=== PATIENT | female | born 1960 | race Caucasian/White ===

== ENCOUNTER 2018-07-21 20:25 | Inpatient (IN) | payer MEDICAID, OTHER ==
[~2018-07-21] VITALS: Ht 149.9 cm; Wt 50.5 kg
[2018-07-22] MEDS ORDERED: FUROSEMIDE 40 MG INJ IV ONE ×3 (00:30→09:00)
[2018-07-22] MEDS ORDERED: INSULIN REGULAR, HUMAN 100 UNIT/1 ML 3ML VIAL SC ONE (00:30)
--- NOTE | 2018-07-22 01:31 | HP ---
Date/Time of Note Date/Time of Note DATE: 07/22/18 TIME: 01:30 Assessment/Plan VTE Prophylaxis Pharmacological prophylaxis: heparin Lines/Catheters IV Catheter Type (from [facility]): Saline Lock Assessment/Plan Hospital Course This is a 57-year-old female being admitted to the telemetry floor for: #1 Volume overload: Likely mixed multifactorial secondary to underlying kidney disease, possible CHF. Her lungs appear clear on examination and chest x-ray is clear. She does have bilateral lower extremity edema. BNP is 1360. Will obtain an echocardiogram, renal ultrasound to further evaluate. She did receive 80 of Lasix in the IV however her urine output was poor. I will give her a dose of Zaroxolyn and additional dose of Lasix and will assess her urine output. Will consult cardiology as well as Dr. Arevalo of nephrology. Will hold off on initiating any SRAVNA inhibitor until were able to figure out her baseline of her kidney function. #2 hypertensive urgency: Patient did present with blood pressures in the systol ic of 180 which did subsequently rise to 200. PRN labetalol at the current time. This likely also has a component of her volume overload. We will diurese her. I will start her on Norvasc 10 mg p.o. daily. Hold off on SRAVAN inhibitor until were able to have a baseline creatinine level. #3 chest pain: Patient has been reporting on and off symptoms of chest pain over the past few weeks. Will check cardiac enzymes x3, first that was negative will check an echocardiogram. Will consult cardiology #4 elevated BNP: possibly undiagnosed CHF. Will check an echocardiogram. Consult cardiology. #5 acute versus acute on chronic kidney injury: concern for possible nephrotic syndrome, will obtain urine studies. I do not have a previous baseline creatinine. Likely multifactorial secondary to underlying poorly controlled hypertension, poorly controlled diabetes mellitus. Will obtain a renal ultrasound. Urine studies. Will consult nephrology Dr. Arevalo. Avoid NSAIDs and nephrotoxins. #6 poorly controlled diabetes mellitus: Patient present with blood sugars in the 600s. She did receive NovoLog in the ER. I will start the patient on a weight- based dose of Lantus and sliding scale. We will need to optimize patient's blood sugar regimen likely with p.o. and insulin based medications. Will obtain a hemoglobin A1c. Check urine microalbumin. #7 hyponatremia: Likely secondary to volume overload, hyperglycemia. will diurese the patient. Will monitor serum sodium levels. Treat elevated blood sugars. #8 DVT GI prophylaxis: Heparin subcu, no GI prophylaxis indicated Further treatment strategy will be implemented as per the clinical course. Result Diagram: 07/21/186 07/21/18 2306 Results 24hrs Laboratory Tests Test 07/21/18 23:06 07/22/18 00:47 White Blood Count 6.1 Red Blood Count 3.48 L Hemoglobin 10.3 L Hematocrit 30.8 L Mean Corpuscular Volume 88.5 Mean Corpuscular Hemoglobin 29.6 Mean Corpuscular Hemoglobin Concent 33.4 Red Cell Distribution Width 13.1 Platelet Count 326 Mean Platelet Volume 10.1 Immature Granulocytes % 0.800 H Neutrophils % 67.3 Lymphocytes % 23.5 Monocytes % 5.9 Eosinophils % 1.8 Basophils % 0.7 Nucleated Red Blood Cells % 0.0 Immature Granulocytes # 0.050 H Neutrophils # 4.1 Lymphocytes # 1.4 Monocytes # 0.4 Eosinophils # 0.1 Basophils # 0.0 Nucleated Red Blood Cells # 0.0 Sodium Level 127 L Potassium Level 4.3 Chloride Level 100 Carbon Dioxide Level 23 Anion Gap 4 L Blood Urea Nitrogen 26 H Creatinine 1.61 H Est Glomerular Filtrat Rate mL/min 33 L Glucose Level 649 *H Calcium Level 8.2 L Total Bilirubin 0.1 L Direct Bilirubin 0.00 Indirect Bilirubin 0.1 Aspartate Amino Transf (AST/SGOT) 19 Alanine Aminotransferase (ALT/SGPT) 14 Alkaline Phosphatase 160 H Troponin I < 0.012 B-Type Natriuretic Peptide 1360 H Total Protein 6.0 L Albumin 2.6 L Globulin 3.40 H Albumin/Globulin Ratio 0.76 Bedside Glucose > 595 *H HPI/ROS Admit Date/Time Admit Date/Time Hx of Present Illness Chief complaint: Lower extremity edema, dyspnea on exertion This is a 57-year-old female with a past medical history of diabetes mellitus hypertension hyperlipidemia who presents to the emergency department with symptoms of bilateral lower extremity edema and dyspnea on exertion. Patient reports that due to the fact that she does not have a primary care physician she has been unable to be compliant with her medications. She was previously on Lasix for lower extremity swelling. She has noticed that over the last 4 days she has noticed swelling getting worse of her lower extremities. Her legs feel heavy. She also reports that she has tightness down her bilateral legs to her toes. She states that she feels short of breath when she walks. She has been experiencing on and off chest pain as well on occasion in the past. Allergies: NKDA Medications: See DIYA DIALLO Const: As per HPI Eyes : No pain discharge or redness or change in visual acuity ENT: No pain, sore throat, congestion, congestion, dysphagia or discharge Respiratory: As per HPI Cardiovascular: As per HPI GI : no change in appetite, abdominal pain, nausea, vomiting, diarrhea, constipation, or change in the color his stool Genitourinary: No dysuria, hematuria, flank pain , discharge or CVA tenderness Musculoskeletal: No joint pain, back pain, neck pain, restricted range of motion in neck or joints Skin: No rash, bruising or hives Neuro: No headache, dizziness, syncope, seizure, focal weakness Endocrine: As per HPI Psych: No hallucination, depression, anxiety or suicidal ideation PMH/Family/Social Past Medical History Hypertension, diabetes, hyperlipidemia Medications Current Medications Insulin Glargine (Lantus) 11 units DAILY@0800 SC ; Start 07/22/18 at 08:00; Status UNV Coded Allergies: No Known Drug Allergies (Verified Allergy, Unknown, 07/22/18) Past Surgical History Bilateral cataracts Family History Significant Family History: no pertinent family hx Social History Alcohol Use: none Smoking Status: Never smoker Drug Use: none Exam/Review of Systems Vital Signs Vitals Vital Signs Date Temp Pulse Resp B/P (MAP) Pulse Ox O2 O2 Flow FiO2 Time Delivery Rate 07/21/18 87 18 203/106 97 Room Air 23:00 (138) 07/21/18 98.2 20:35 Exam Exam General: Patient is currently lying in bed in no acute distress HEENT: Atraumatic, normocephalic. The pupils are equal, round and reactive. Extraocular motor are intact Neck: Supple with full range of motion. No rigidity or meningismus Chest: Nontender Lungs: Clear to auscultation bilaterally no crackles rales or wheezing Heart: Normal S1-S2, Regular rhythm and rate. Abdomen: Soft , nontender, nondistended , bowel sounds are present. No guarding no rebound tenderness , No masses or organomegaly. Right flank pain to palpation, Extremities: Bilateral 2+ pitting edema of the lower extremities Musculoskeletal: Lower back pain to palpation Neurologic: Normal mental status, speech normal, cranial nerves II through XII are intact, motor and sensory are intact, Additional Comments EKG: Normal sinus rhythm at approximately 88 bpm, no ST or T wave of normalities concerning for acute ischemia PROCEDURE: XR Chest. CLINICAL INDICATION: Chest pain TECHNIQUE: Single frontal view of the chest was obtained COMPARISON: None FINDINGS: The heart and mediastinum are within normal limits. Mild degenerative enthesopathy in thoracic spine. There is minimal prominence of the lung interstitium likely minimal chronic changes. Minimal linear atelectasis/fibrosis at the right lung base. There is no pleural effusion or pneumothorax. ECG leads project over the chest. IMPRESSION: Minimal linear atelectasis/fibrosis at the right lung base. RPTAT: HJES .Torito Rodriguez MD, MD Date Time Electronically viewed and signed by .Torito Rodriguez MD, MD on 07/22/2018 00:51 .S/ CC: BUNNY ROJO [phone] CARLA DANIELLE Jul 22, 2018 01:30
[2018-07-22] MEDS ORDERED: DEXTROSE 50% 50 ML SYRINGE IV PRN ×2 (02:00)
[2018-07-22] MEDS ORDERED: DOCUSATE SODIUM 100 MG CAP PO PRN (02:00)
[2018-07-22] MEDS ORDERED: NACL 0.9% 3 ML SYG IV SCH (02:00)
[2018-07-22] MEDS ORDERED: morphine 2 MG INJ IV PRN (02:00)
[2018-07-22] MEDS ORDERED: GLUCAGON 1 MG INJ IM PRN (02:00)
[2018-07-22] MEDS ORDERED: ACETAMINOPHEN 325 MG TAB PO PRN (02:00)
[2018-07-22] MEDS ORDERED: LABETALOL HCL 20MG INJ IV ONE ×2 (02:00→05:30)
[2018-07-22] MEDS ORDERED: GLUCOSE GEL 15 GRAM TUBE BUCCAL PRN (02:00)
[2018-07-22] MEDS: ACCU-CHEK XX SCH (02:00)
[2018-07-22] MEDS ORDERED: GLUCOSE GEL 15 GRAM TUBE PO PRN ×2 (02:00)
[2018-07-22] MEDS ORDERED: BISACODYL (EC) 5 MG TAB PO PRN (02:00)
[2018-07-22] MEDS ORDERED: INSULIN GLARGINE [LANTus] (100 UNITS/ML) SYG SC SCH ×2 (03:00→08:00)
--- NOTE | 2018-07-22 03:12 | ERD ---
ER Documentation Chief Complaint Chief Complaint swelling both legs/abd pain/back pain x 4 days HPI This is a very pleasant 57-year-old male with swelling of both legs going all the way up her legs for the past 2 weeks getting progressively worse. She was on diuretics but ran out of her medications about a week ago and is gotten p rogressively worse. No fevers no chills no nausea no vomiting no other current complaints. ROS All systems reviewed and are negative except as per history of present illness. Allergies Allergies: Coded Allergies: No Known Drug Allergies (Verified Allergy, Unknown, 07/21/18) PMhx/Soc Medical and Surgical Hx: pt denies Surgical Hx Hx Cardiac Disorders: Yes (htn) Hx Miscellaneous Medical Probl: Yes (diabetes 2; diet controlled) Hx Alcohol Use: No Hx Substance Use: No Hx Tobacco Use: No Smoking Status: Never smoker Physical Exam Vitals Vital Signs Date Temp Pulse Resp B/P (MAP) Pulse Ox O2 O2 Flow FiO2 Time Delivery Rate 07/22/18 90 18 201/100 98 Room Air 01:30 (133) 07/21/18 87 18 203/106 97 Room Air 23:00 (138) 07/21/18 98.2 100 18 180/94 98 20:35 (122) Physical Exam Const: No acute distress Head: Atraumatic Eyes: Normal Conjunctiva ENT: Normal External Ears, Nose and Mouth. Neck: Full range of motion. No meningismus. Resp: Clear to auscultation bilaterally Cardio: Regular rate and rhythm, no murmurs Abd: Soft, non tender, non distended. Normal bowel sounds Skin: No petechiae or rashes Back: No midline or flank tenderness Ext: No cyanosis, or edema Neur: Awake and alert Psych: Normal Mood and Affect Result Diagram: 07/21/18230507/21/18 230 Results 24 hrs Laboratory Tests Test 07/21/18 23:06 07/22/18 00:47 07/22/18 02:52 White Blood Count 6.1 10^3/ul Red Blood Count 3.48 10^6/ul Hemoglobin 10.3 g/dl Hematocrit 30.8 % Mean Corpuscular Volume 88.5 fl Mean Corpuscular Hemoglobin 29.6 pg Mean Corpuscular 33.4 g/dl Hemoglobin Concent Red Cell Distribution Width 13.1 % Platelet Count 326 10^3/UL Mean Platelet Volume 10.1 fl Immature Granulocytes % 0.800 % Neutrophils % 67.3 % Lymphocytes % 23.5 % Monocytes % 5.9 % Eosinophils % 1.8 % Basophils % 0.7 % Nucleated Red Blood Cells % 0.0 /100WBC Immature Granulocytes # 0.050 10^3/ul Neutrophils # 4.1 10^3/ul Lymphocytes # 1.4 10^3/ul Monocytes # 0.4 10^3/ul Eosinophils # 0.1 10^3/ul Basophils # 0.0 10^3/ul Nucleated Red Blood Cells # 0.0 10^3/ul Sodium Level 127 mmol/L Potassium Level 4.3 mmol/L Chloride Level 100 mmol/L Carbon Dioxide Level 23 mmol/L Anion Gap 4 Blood Urea Nitrogen 26 mg/dl Creatinine 1.61 mg/dl Est Glomerular Filtrat Rate mL/min 33 mL/min Glucose Level 649 mg/dl Calcium Level 8.2 mg/dl Total Bilirubin 0.1 mg/dl Direct Bilirubin 0.00 mg/dl Indirect Bilirubin 0.1 mg/dl Aspartate Amino Transf (AST/SGOT) 19 IU/L Alanine 14 IU/L Aminotransferase (ALT/SGPT) Alkaline Phosphatase 160 IU/L Troponin I < 0.012 ng/ml B-Type Natriuretic Peptide 1360 PG/ML Total Protein 6.0 g/dl Albumin 2.6 g/dl Globulin 3.40 g/dl Albumin/Globulin Ratio 0.76 Bedside Glucose > 595 mg/dL 519 mg/dL Current Medications Medications Dose Sig/Dora Start Time Status Last (Trade) Ordered Route PRN Stop Time Admin Dose Reason Admin Insulin 10 unit ONCE ONCE 07/22/18 DC 07/22/18 Human SC 00:30 00:42 Regular 07/22/18 00:31 (Humulin R) Furosemide 80 mg ONCE ONCE 07/22/18 DC 07/22/18 (Lasix) IV 00:30 00:40 07/22/18 00:31 Insulin 11 units DAILY@0800 07/22/18 DC Glargine SC 08:00 (Lantus) 07/22/18 08:00 IV Flush 3 ml PER 07/22/18 (NS 3 ml) PROTOCOL IV 02:00 650 mg Q6H PRN 07/22/18 Acetaminophen PO .PAIN 1-3 02:00 (Tylenol OR TEMP Tab) Morphine 2 mg Q4H PRN 07/22/18 Sulfate IV .PAIN 02:00 (morphine) 7-10 Docusate 100 mg Q12H PRN 07/22/18 Sodium PO 02:00 (Colace) .CONSTIPATION Bisacodyl 5 mg DAILY PRN 07/22/18 (Dulcolax) PO 02:00 .CONSTIPATION Heparin 5,000 unit Q8 SC 07/22/18 Sodium 06:00 (Porcine) (Heparin (5000 Units/1ml)) Discontinue ONCE ONCE 07/22/18 DC Miscellaneous current oral XX 02:00 sulfonylur... 07/22/18 02:01 Information (* Miscellaneous Pharmacy Order) Diagnostic 1 ea 02 XX 07/22/18 Test (Pha) 02:00 (Accu-Chek) ONCE ONCE 07/22/18 DC Miscellaneous HYPOGLYCEMIA XX 02:00 PROTOCOL 07/22/18 02:01 Information w... (* Miscellaneous Pharmacy Order) Insulin NOVOLOG Q4 SC 07/22/18 Aspart *MODERATE* 05:00 (Novolog ALGORI... Insulin Pen) Discontinue ONCE ONCE 07/22/18 DC Miscellaneous all previ... XX 02:00 07/22/18 02:01 Information (* Miscellaneous Pharmacy Order) Labetalol 10 mg ONCE ONCE 07/22/18 DC 07/22/18 HCl IV 02:00 02:29 (Labetalol) 07/22/18 02:01 Insulin 11 units DAILY@0800 07/22/18 Glargine SC 03:00 (Lantus) 1 ea NOTE XX 07/22/18 Miscellaneous 02:00 Information Glucose 15 gm Q15M PRN 07/22/18 (Glutose) PO DECREASED 02:00 GLUCOSE Glucose 22.5 gm Q15M PRN 07/22/18 (Glutose) PO DECREASED 02:00 GLUCOSE Dextrose 25 ml Q15M PRN 07/22/18 (D50w IV DECREASED 02:00 Syringe) GLUCOSE Dextrose 50 ml Q15M PRN 07/22/18 (D50w IV DECREASED 02:00 Syringe) GLUCOSE Glucagon 1 mg Q15M PRN 07/22/18 (Glucagen) IM DECREASED 02:00 GLUCOSE Glucose 15 gm Q15M PRN 4/22/19 (Glutose) BUCCAL 02:00 DECREASED GLUCOSE Procedures/MDM EKG: Rate/Rhythm: [Normal Sinus Rhythm] QRS, ST, T-waves: [No changes consistent w/ acute ischemia] Impression: [No evidence of ischemia or arrhythmia] Chest X-ray 1V Interpreted by me: Soft Tissue: No acute abnormalities Bones: No acute abnormalities Mediastinum/Cardiac Silhouette/Lungs: [No acute abnormalities] Patient's heart failure symptoms is concerning for acute decompensation and will require inpatient workup and monitoring. Further w/u for ischemia, arrhythmia, PE or dissection will be deferred to the inpatient team. Accepting Care Team: Current data and ongoing care discussed. Time: 2 AM Primary Provider: Hospitalist Consulting: [XOXOXO] Outstanding Data: none Departure Diagnosis: Primary Impression: CHF (congestive heart failure) Heart failure type: unspecified Heart failure chronicity: unspecified Qualified Codes: I50.9 - Heart failure, unspecified Condition: Serious BUNNY ROJO Jul 22, 2018 03:12
[2018-07-22] MEDS ORDERED: INSULIN ASPART [NOVOLOG] 3 ML PEN SC SCH (05:00)
[2018-07-22] MEDS ORDERED: INSULIN REGULAR, HUMAN 100 UNIT/1 ML 3ML VIAL SC STA (05:06)
[2018-07-22] MEDS ORDERED: ONDANSETRON (ODT) 4 MG TAB ODT ONE (06:15)
[2018-07-22] MEDS ORDERED: hydrALAzine 20 MG INJ IV PRN (07:30)
[2018-07-22] MEDS ORDERED: METOLAZONE 2.5 MG TAB PO ONE ×2 (07:30→08:30)
[2018-07-22] MEDS: HEPARIN 5,000 UNIT/1 ML VIAL SC SCH ×3 (07:55→22:08)
[2018-07-22] MEDS: INSULIN GLARGINE [LANTus] (100 UNITS/ML) SYG SC SCH (08:32)
[2018-07-22] MEDS: INSULIN ASPART [NOVOLOG] 3 ML PEN SC SCH ×4 (09:40→21:06)
[2018-07-22] MEDS: AMLODIPINE 10 MG TAB PO SCH (09:54)
--- NOTE | 2018-07-22 11:14 | PN ---
Date/Time of Note Date/Time of Note DATE: 07/22/18 TIME: 11:13 Assessment/Plan VTE Prophylaxis Pharmacological prophylaxis: heparin Lines/Catheters IV Catheter Type (from [facility]): Saline Lock Assessment/Plan Assessment/Plan 1. Peripheral edema with proteinuria and hypoalbuminemia, r/o nephrotic syndrome, on lasix, follow up with nephrology 2. Renal failure,a cute versus chronic, follow up with BMP 3. Right ureteral calculus, flomax and IVF/lasxi(for edema), repeat US 4. HTN,, controlled 5. DM, insulins 6. Hyponatremia, due to hyperglycemia, follow up with Na 7. Normocytic anemia, likely CKD related 8. DVT prophylaxis: heparin Result Diagram: 07/22/1851907/22/18519 Results 24hrs Laboratory Tests Test 07/21/18 23:00 07/21/18 23:06 07/22/18 00:47 07/22/18 02:52 Urine Color STRAW Urine Clarity CLEAR Urine pH 7.0 Urine Specific 1.024 [place] Urine Ketones NEGATIVE Urine Nitrite NEGATIVE Urine Bilirubin NEGATIVE Urine Urobilinogen NEGATIVE Urine Leukocyte NEGATIVE Esterase Urine Microscopic 1 RBC Urine Microscopic 1 WBC Urine Hemoglobin 1+ H Urine Random Sodium 31 Urine Glucose 3+ H Urine Total Protein 3+ H White Blood Count 6.1 Red Blood Count 3.48 L Hemoglobin 10.3 L Hematocrit 30.8 L Mean Corpuscular 88.5 Volume Mean Corpuscular 29.6 Hemoglobin Mean Corpuscular 33.4 Hemoglobin Concent Red Cell 13.1 Distribution Width Platelet Count 326 Mean Platelet Volume 10.1 Immature 0.800 H Granulocytes % Neutrophils % 67.3 Lymphocytes % 23.5 Monocytes % 5.9 Eosinophils % 1.8 Basophils % 0.7 Nucleated Red Blood 0.0 Cells % Immature 0.050 H Granulocytes # Neutrophils # 4.1 Lymphocytes # 1.4 Monocytes # 0.4 Eosinophils # 0.1 Basophils # 0.0 Nucleated Red Blood 0.0 Cells # Sodium Level 127 L Potassium Level 4.3 Chloride Level 100 Carbon Dioxide Level 23 Anion Gap 4 L Blood Urea Nitrogen 26 H Creatinine 1.61 H Est Glomerular 33 L Filtrat Rate mL/min Glucose Level 649 *H Calcium Level 8.2 L Total Bilirubin 0.1 L Direct Bilirubin 0.00 Indirect Bilirubin 0.1 Aspartate Amino 19 Transf (AST/SGOT) Alanine 14 Aminotransferase (AL T/SGPT) Alkaline Phosphatase 160 H Troponin I < 0.012 B-Type Natriuretic 1360 H Peptide Total Protein 6.0 L Albumin 2.6 L Globulin 3.40 H Albumin/Globulin 0.76 Ratio Bedside Glucose > 595 *H 519 *H Test 07/22/18 04:49 07/22/18 04:58 07/22/18 05:20 07/22/18 06:50 Bedside Glucose 384 H 285 H Bedside Urine pH 7.0 (LAB) Bedside Urine 3+ H Protein (LAB) Bedside Urine 0.50% H Glucose (UA) Bedside Urine Negative Ketones (LAB) Bedside Urine Blood 2+ H Bedside Urine Negative Nitrite (LAB) Bedside Urine Negative Leukocyte Esterase (L White Blood Count 7.4 # Red Blood Count 3.49 L Hemoglobin 10.4 L Hematocrit 30.5 L Mean Corpuscular 87.4 Volume Mean Corpuscular 29.8 Hemoglobin Mean Corpuscular 34.1 Hemoglobin Concent Red Cell 12.9 Distribution Width Platelet Count 343 Mean Platelet Volume 9.8 Immature 0.800 H Granulocytes % Neutrophils % 67.6 Lymphocytes % 24.4 Monocytes % 5.0 Eosinophils % 1.3 Basophils % 0.9 Nucleated Red Blood 0.0 Cells % Immature 0.060 H Granulocytes # Neutrophils # 5.0 Lymphocytes # 1.8 Monocytes # 0.4 Eosinophils # 0.1 Basophils # 0.1 Nucleated Red Blood 0.0 Cells # Sodium Level 131 L Potassium Level 3.8 Chloride Level 100 Carbon Dioxide Level 25 Anion Gap 6 Blood Urea Nitrogen 27 H Creatinine 1.64 H Est Glomerular 33 L Filtrat Rate mL/min Glucose Level 378 #H Calcium Level 8.4 Magnesium Level 2.4 Total Bilirubin 0.2 Direct Bilirubin 0.00 Indirect Bilirubin 0.2 Aspartate Amino 18 Transf (AST/SGOT) Alanine 7 L Aminotransferase (AL T/SGPT) Alkaline Phosphatase 139 H Total Protein 5.9 L Albumin 2.7 L Globulin 3.20 Albumin/Globulin 0.84 Ratio Triglycerides Level 278 H Cholesterol Level 380 H LDL Cholesterol, 259 Calculated HDL Cholesterol 65 Cholesterol/HDL 5.8 Ratio Thyroid Stimulating 8.670 H Hormone (TSH) Test 07/22/18 08:29 07/22/18 09:32 Bedside Glucose 221 H 173 Subjective 24 Hr Interval Summary Free Text/Dictation leg swelling, shortness of breath on exertion Exam/Review of Systems Exam Vitals Vital Signs Date Temp Pulse Resp B/P (MAP) Pulse Ox O2 O2 Flow FiO2 Time Delivery Rate 07/22/18 82 16 157/83 100 Room Air 09:55 (107) 07/22/18 2 06:58 07/22/18 98.3 05:03 Constitutional: alert, oriented, well developed Head: normocephalic, atraumatic Eyes: nl conjunctiva, EOMI, nl lids ENMT: nl external ears & nose, nl lips & teeth, nl nasal mucosa & septum Neck: supple, non-tender Respiratory: clear to auscultation, normal air movement; No congested cough, No crackles/rales, No diminished breath sounds, No intercostal retraction, No labored breathing, No respirations, No tactile fremitus, No wheezing, No other Cardiovascular: regular rate and rhythm, nl pulses; No bruits, No diastolic murmur, No edema, No gallop, No irregular rhythm, No jugular venous distention (JVD), No murmurs/extra sounds, No rub, No systolic murmur, No S3, No S4, No other Gastrointestinal: soft, nl liver, spleen, non-tender Musculoskeletal: nl extremities to inspection Extremities: edema (bilateral lower extremity edema) Neurological: [employer] II-XII intact, nl mental status, nl speech, nl strength Results Results 24hrs Laboratory Tests Test 07/21/18 23:00 07/21/18 23:06 07/22/18 00:47 07/22/18 02:52 Urine Color STRAW Urine Clarity CLEAR Urine pH 7.0 Urine Specific 1.024 [place] Urine Ketones NEGATIVE Urine Nitrite NEGATIVE Urine Bilirubin NEGATIVE Urine Urobilinogen NEGATIVE Urine Leukocyte NEGATIVE Esterase Urine Microscopic 1 RBC Urine Microscopic 1 WBC Urine Hemoglobin 1+ H Urine Random Sodium 31 Urine Glucose 3+ H Urine Total Protein 3+ H White Blood Count 6.1 Red Blood Count 3.48 L Hemoglobin 10.3 L Hematocrit 30.8 L Mean Corpuscular 88.5 Volume Mean Corpuscular 29.6 Hemoglobin Mean Corpuscular 33.4 Hemoglobin Concent Red Cell 13.1 Distribution Width Platelet Count 326 Mean Platelet Volume 10.1 Immature 0.800 H Granulocytes % Neutrophils % 67.3 Lymphocytes % 23.5 Monocytes % 5.9 Eosinophils % 1.8 Basophils % 0.7 Nucleated Red Blood 0.0 Cells % Immature 0.050 H Granulocytes # Neutrophils # 4.1 Lymphocytes # 1.4 Monocytes # 0.4 Eosinophils # 0.1 Basophils # 0.0 Nucleated Red Blood 0.0 Cells # Sodium Level 127 L Potassium Level 4.3 Chloride Level 100 Carbon Dioxide Level 23 Anion Gap 4 L Blood Urea Nitrogen 26 H Creatinine 1.61 H Est Glomerular 33 L Filtrat Rate mL/min Glucose Level 649 *H Calcium Level 8.2 L Total Bilirubin 0.1 L Direct Bilirubin 0.00 Indirect Bilirubin 0.1 Aspartate Amino 19 Transf (AST/SGOT) Alanine 14 Aminotransferase (AL T/SGPT) Alkaline Phosphatase 160 H Troponin I < 0.012 B-Type Natriuretic 1360 H Peptide Total Protein 6.0 L Albumin 2.6 L Globulin 3.40 H Albumin/Globulin 0.76 Ratio Bedside Glucose > 595 *H 519 *H Test 07/22/18 04:49 07/22/18 04:58 07/22/18 05:20 07/22/18 06:50 Bedside Glucose 384 H 285 H Bedside Urine pH 7.0 (LAB) Bedside Urine 3+ H Protein (LAB) Bedside Urine 0.50% H Glucose (UA) Bedside Urine Negative Ketones (LAB) Bedside Urine Blood 2+ H Bedside Urine Negative Nitrite (LAB) Bedside Urine Negative Leukocyte Esterase (L White Blood Count 7.4 # Red Blood Count 3.49 L Hemoglobin 10.4 L Hematocrit 30.5 L Mean Corpuscular 87.4 Volume Mean Corpuscular 29.8 Hemoglobin Mean Corpuscular 34.1 Hemoglobin Concent Red Cell 12.9 Distribution Width Platelet Count 343 Mean Platelet Volume 9.8 Immature 0.800 H Granulocytes % Neutrophils % 67.6 Lymphocytes % 24.4 Monocytes % 5.0 Eosinophils % 1.3 Basophils % 0.9 Nucleated Red Blood 0.0 Cells % Immature 0.060 H Granulocytes # Neutrophils # 5.0 Lymphocytes # 1.8 Monocytes # 0.4 Eosinophils # 0.1 Basophils # 0.1 Nucleated Red Blood 0.0 Cells # Sodium Level 131 L Potassium Level 3.8 Chloride Level 100 Carbon Dioxide Level 25 Anion Gap 6 Blood Urea Nitrogen 27 H Creatinine 1.64 H Est Glomerular 33 L Filtrat Rate mL/min Glucose Level 378 #H Calcium Level 8.4 Magnesium Level 2.4 Total Bilirubin 0.2 Direct Bilirubin 0.00 Indirect Bilirubin 0.2 Aspartate Amino 18 Transf (AST/SGOT) Alanine 7 L Aminotransferase (AL T/SGPT) Alkaline Phosphatase 139 H Total Protein 5.9 L Albumin 2.7 L Globulin 3.20 Albumin/Globulin 0.84 Ratio Triglycerides Level 278 H Cholesterol Level 380 H LDL Cholesterol, 259 Calculated HDL Cholesterol 65 Cholesterol/HDL 5.8 Ratio Thyroid Stimulating 8.670 H Hormone (TSH) Test 07/22/18 08:29 07/22/18 09:32 Bedside Glucose 221 H 173 Medications Medication Current Medications IV Flush (NS 3 ml) 3 ml PER PROTOCOL IV ; Start 07/22/18 at 02:00 Acetaminophen (Tylenol Tab) 650 mg Q6H PRN PO .PAIN 1-3 OR TEMP; Start 07/22/18 at 02:00 Morphine Sulfate (morphine) 2 mg Q4H PRN IV .PAIN 7-10; Start 07/22/18 at 02:00 Docusate Sodium (Colace) 100 mg Q12H PRN PO .CONSTIPATION; Start 07/22/18 at 0 2:00 Bisacodyl (Dulcolax) 5 mg DAILY PRN PO .CONSTIPATION; Start 07/22/18 at 02:00 Heparin Sodium (Porcine) (Heparin (5000 Units/1ml)) 5,000 unit Q8 SC Last administered on 07/22/18at 07:55; Admin Dose 5,000 UNIT; Start 07/22/18 at 06:00 Diagnostic Test (Pha) (Accu-Chek) 1 ea 02 XX ; Start 07/22/18 at 02:00 Miscellaneous Information 1 ea NOTE XX ; Start 07/22/18 at 02:00 Glucose (Glutose) 15 gm Q15M PRN PO DECREASED GLUCOSE; Start 07/22/18 at 02:00 Glucose (Glutose) 22.5 gm Q15M PRN PO DECREASED GLUCOSE; Start 07/22/18 at 02:00 Dextrose (D50w Syringe) 25 ml Q15M PRN IV DECREASED GLUCOSE; Start 07/22/18 at 02:00 Dextrose (D50w Syringe) 50 ml Q15M PRN IV DECREASED GLUCOSE; Start 07/22/18 at 02:00 Glucagon (Glucagen) 1 mg Q15M PRN IM DECREASED GLUCOSE; Start 07/22/18 at 02:00 Glucose (Glutose) 15 gm Q15M PRN BUCCAL DECREASED GLUCOSE; Start 07/22/18 at 02:00 Insulin Glargine (Lantus) 11 units DAILY@0800 SC Last administered on 07/22/18at 08:32; Admin Dose 11 UNITS; Start 07/22/18 at 08:00 Insulin Aspart (Novolog Insulin Pen) NOVOLOG *MODERATE* ALGORI... Q4 SC Last administered on 07/22/18at 09:40; Admin Dose 2 UNIT; Start 07/22/18 at 09:00 Amlodipine Besylate (Norvasc) 10 mg DAILY PO Last administered on 07/22/18at 09:54; Admin Dose 10 MG; Start 07/22/18 at 09:00 Hydralazine HCl (Apresoline) 10 mg Q4H PRN IV ELEVATED BLOOD PRESSURE; Start 07/22/18 at 07:30 BABAK DE LOS SANTOS MD Jul 22, 2018 11:14
--- NOTE | 2018-07-22 11:15 | QN ---
Documentation Comment Observation Note: Time: 4 hours Family Hx: Negative for diabetes Evaluation: Multiple exams showed improving symptoms and no evidence of clinical decompensation. ANIBAL LOJA MD Jul 22, 2018 11:15
--- NOTE | 2018-07-22 12:09 | CONS ---
DATE OF ADMISSION: 07/21/2018 DATE OF CONSULTATION: 07/22/2018 REASON FOR CONSULTATION: Acute kidney injury, hyponatremia. PHYSICIAN REQUESTING CONSULT: Dr. Danielle. HISTORY OF PRESENT ILLNESS: This is a 57-year-old female with a past medical history of hypertension , history of diabetes, who presents to [facility] for evaluation of lower extremity edema, shortness of breath. The patient states that she has had increased shortness of breath, lowe r extremity edema for the past several days. Patient does not have a primary care physician. John schwarz states that she was previously on Lasix for lower extremity swelling but the symptoms progressed. As a result, she came to the Emergency Room. Upon arrival, patient was noted to have elevated glucos e 649. Sodium 127, BUN 26, creatinine 1.61. In the Emergency Room, patient was given IV insulin and diuretic therapy. In terms of patient's renal history, the patient denies any prior history of acute kidney injury, chr onic kidney disease. The patient does admit to having diabetes. She is not aware of having any prot einuria. She otherwise denies any hemoptysis, hematemesis or hematochezia. PAST MEDICAL HISTORY: 1. History of diabetes. 2. History of hypertension. ALLERGIES: No known drug allergies. FAMILY HISTORY: No family history of kidney disease. PAST SURGICAL HISTORY: Reviewed. The patient's medications have been reviewed. SOCIAL HISTORY: Does not drink, smoke or do drugs. REVIEW OF SYSTEMS: A 14-point review of systems conducted. Pertinent positives stated in HPI, other tracey negative. PHYSICAL EXAMINATION: VITAL SIGNS: Blood pressure is 157/83, respirations 17, pulse 82, temperature 98.3. HEENT: Head is normocephalic. NECK: Supple. HEART: Regular rate. LUNGS: Show diminished breath sounds at the base. ABDOMEN: Soft. Nontender to palpation. No rebound or guarding. EXTREMITIES: Negative for clubbing, cyanosis. Positive edema. DERMATOLOGIC: No rashes. MUSCULOSKELETAL: No joint effusion. NEUROLOGIC: No focal deficits. MEDICATIONS: Patient medications have been reviewed. LABORATORY DATA: Has been reviewed. IMAGING STUDIES: Have been reviewed. The patient's renal ultrasound shows no evidence of obstructio n, normal echogenicity. Doppler lower extremity ultrasound is negative for DVT. Chest x-ray was rev iewed, showed atelectasis or infiltrate at the right base. CT scan of the abdomen shows a 3 mm parti ally obstructing calculus in the mid right ureter, mild perinephric stranding, normal appearing appen susanna. ASSESSMENT AND PLAN: This is a 57-year-old female who presents with: 1. Volume overloaded. Etiology is concerning for possibility of nephrotic syndrome. The patient sofia s significant proteinuria on urinalysis and poorly controlled diabetes. Other etiologies such as chr onic heart failure will need to be evaluated. Recommendation at this point is to quantify the patien t's proteinuria. Will check a protein/creatinine ratio, albumin/creatinine ratio. Agree with checki ng a 2D echo to evaluate ejection fraction. Would continue diuretic therapy. We will monitor renal function and electrolytes closely. 2. Nonoliguric acute kidney injury versus chronic kidney disease. Etiology of acute kidney injury i ncludes hemodynamics. The possibility of underlying chronic kidney disease due to poorly controlled diabetes is likely a consideration. The patient's initial urinalysis was reviewed, showed no evidenc e of active sediment, positive proteinuria. Plan is to quantify patient's proteinuria as stated abov e, patient has nephrotic range proteinuria. Would consider checking serologies. Otherwise, continue current medical management. Continue diuretic therapy, monitoring renal function closely. Continue disease factor modification, good glycemic and blood pressure control. 3. Hyponatremia, etiology secondary to hyperglycemia and acute kidney injury. The patient's sodium levels will improve once the patient achieves euglycemia. Will continue to monitor. 4. Anemia. Monitor hemoglobin and hematocrit levels. 5. Mineral bone disorder, monitor calcium and phosphorus levels. 6. Hypertension. Continue current blood pressure regimen. Continue diuresis, defer SRAVAN inhibitor o r ARB at this time in setting of acute kidney injury. 7. Chest pain. The patient will be ruled out for acute coronary syndrome. Continue to check serial troponins. Follow up 2D echo. 8. Diabetes, poorly controlled. Continue current diabetic regimen, adjust as needed. Thank you, Dr. Danielle, for this interesting consult. It will be a pleasure to follow patient with enrique skaggs throughout the hospital course. Dictated By: ESPERANZA VELASQUEZ DO NR/NTS Conf#: [id number] DID#: [id number] CC: CARLA DANIELLE MD;*EndCC*
[2018-07-22 14:13] VITALS: BP 138/86; PULSE 87; RESP 18
--- NOTE | 2018-07-22 14:13 | RADRPT ---
Echocardiogram Report Patient Name: ALESSIO QUINTANAPatient ID: [id number] : 1960 (58y )Study Date: 07/22/2018 7:03:15 AM Gender: FAccession #: [id number] Tech: Pablo Padgett RDCS Location: [facility] Ref.Physician: CARLA DANIELLE Height(Cm): BSA: Weight(Kg): Quality: AdequateAccount #: Procedures: Echocardiographic Report: Transthoracic echocardiogram with complete 2D, M-Mode, and doppler examination. Indications: Volume overload. Measurements: 2D/M Mode Doppler Measurement Value Normal Range Measurement Value Normal Range LVIDd 2D 3.5 [ 3.8 - 5.2 ] cm AV Peak Umesh 1.1 [ 100.0 - 170.0 ] cm/sec LVIDs 2D 2.5 [ 2.2 - 3.5 ] cm AV Peak PG 5.0 [ 2.0 - 9.0 ] mmHg LVPWd 2D 1.1 [ 0.6 - 0.9 ] cm LVOT Peak Umesh 0.8 [ 70.0 - 110.0 ] cm/sec IVSd 2D 1.0 [ 0.6 - 0.9 ] cm LVOT Peak PG 3.0 [ 2.0 - 6.0 ] mmHg IVS/LVPW 2D 0.9 ratio MV E Peak Umesh 0.7 [ 60.0 - 130.0 ] cm/sec AoR Diam 2D 2.8 [ 2.3 - 3.1 ] cm MV A Peak Umesh 1.0 [ 100.0 - 120.0 ] cm/sec LA/Ao 2D 1 ratio MV E/A 0.7 [ 0.8 - 1.5 ] ratio LA Dimen 2D 2.6 [ 2.7 - 3.8 ] cm MV Decel Time 197 [ 104 - 258 ] msec Lat E` Umesh 0.1 [ 10.0 - 15.0 ] cm/sec MV E/A 0.7 [ 0.8 - 1.5 ] ratio Findings: Left Ventricle: Normal left ventricular systolic function. Normal left ventricular cavity size. Mild concentric left ventricular hypertrophy. Ejection fraction is visually estimated at 60 %. Tissue Doppler/Mitral Doppler indices are consistent with impaired relaxation (Stage I diastolic dysfunction). Right Ventricle: Normal right ventricular size. Normal right ventricular systolic function. Left Atrium: The left atrium is normal in size. Right Atrium: The right atrium is normal in size. Mitral Valve: Mitral valve leaflets appear mildly thickened. Mild mitral annular calcification. Trace mitral regurgitation. Aortic Valve: Normal appearance of the aortic valve. No significant aortic stenosis or insufficiency. Tricuspid Valve: Normal appearance and function of the tricuspid valve with trace physiologic regurgitation. Normal right ventricular systolic pressure. Pulmonic Valve: Pulmonic valve not well visualized. Pericardium: Normal pericardium with no significant pericardial effusion. Aorta: Normal aortic root. IVC: Normal size and normal respiratory collapse consistent with normal right atrial pressure. Conclusions: Normal left ventricular systolic function. Normal left ventricular cavity size. Mild concentric left ventricular hypertrophy. Ejection fraction is visually estimated at 60 %. Tissue Doppler/Mitral Doppler indices are consistent with impaired relaxation (Stage I diastolic dysfunction). Mitral valve leaflets appear mildly thickened. Mild mitral annular calcification. Trace mitral regurgitation. Normal appearance of the aortic valve. No significant aortic stenosis or insufficiency. Normal appearance and function of the tricuspid valve with trace physiologic regurgitation. Normal right ventricular systolic pressure. Electronically Signed By: Brant Hughes 2018-07-22 14:12:28 PDT
[2018-07-22 14:38] VITALS: Ht 149.9 cm; Wt 50.5 kg
[2018-07-22] MEDS ORDERED: ASPI-817 PO (14:53)
[2018-07-22] MEDS: SOD CHLORIDE 0.45% 1,000 ML IV SCH (15:18)
[2018-07-22] MEDS: TAMSULOSIN (SR) 0.4 MG CAP PO SCH (16:03)
--- NOTE | 2018-07-22 16:03 | CONS ---
Assessment/Plan Assessment/Plan Hospital Course (Demo Recall) Lower extremity edema: Doubt CHF. Most likely secondary to her renal dysfunction and proteinuria Hypertension : Poorly controlled diabetes secondary to noncompliance Severe hyperglycemia Proteinuria Renal insufficiency: Unclear acute versus chronic Recommendations: Diuretic to be managed as per renal recommendation given her renal insufficiency Continue with blood pressure control Diabetic management as per internal medicine Importance of compliant with discussed with the patient and daughter Not on SRAVAN inhibitor due to her renal insufficiency. To be started once okay from renal standpoint Thank you for his referral. I will continue to follow along with you LORENA PETERS MD [facility] Consultation Date/Type/Reason Admit Date/Time Date of Consultation: Jul 22, 2018 Type of Consult Cardiology Reason for Consultation r/o CHF Requesting Provider: CARLA DANIELLE Date/Time of Note DATE: 07/22/18 TIME: 15:57 Hx of Present Illness Interventional cardiology consultation note Chief complaint: Lower extremity edema Reason for consult: Rule out CHF History of present illness: Thank you for this referral. History of the neuro the patient discussion with her daughter was also translating for me. Review of the chart discussion with the physician staff. This is a pleasant 57-year-old female with a past medical history of hypertension, history of diabetes, currently on no medication who presents to [facility] for evaluation of lower extremity edema. According to the daughter patient only takes medication when she is taken to the ER. With time she was taken to the clinic she was sent to ER because her sugar was too high. She is on no medication at home including no blood pressure medication. She has noted to have increasing lower external edema which came to emergency room. Patient she denies any PND orthopnea to me but does complain of occasional shortness of breath could not describe it well she denies any chest pain or pressure to me. PAST MEDICAL HISTORY: 1. History of diabetes. 2. History of hypertension. ALLERGIES: No known drug allergies. FAMILY HISTORY: No family history of early coronary artery disease. SOCIAL HISTORY: Does not drink, smoke or do drugs. Medications she is not taking any medication except aspirin at home Review of system: Patient denies all others except for above-mentioned Past Medical History Home Meds Reported Medications Aspirin* (Aspirin* EC) 81 Mg Tablet., 81 MG PO DAILY, TAB 07/22/18 Medications Current Medications IV Flush (NS 3 ml) 3 ml PER PROTOCOL IV ; Start 07/22/18 at 02:00 Acetaminophen (Tylenol Tab) 650 mg Q6H PRN PO .PAIN 1-3 OR TEMP; Start 07/22/18 at 02:00 Morphine Sulfate (morphine) 2 mg Q4H PRN IV .PAIN 7-10; Start 07/22/18 at 02:00 Docusate Sodium (Colace) 100 mg Q12H PRN PO .CONSTIPATION; Start 07/22/18 at 02:00 Bisacodyl (Dulcolax) 5 mg DAILY PRN PO .CONSTIPATION; Start 07/22/18 at 02:00 Heparin Sodium (Porcine) (Heparin (5000 Units/1ml)) 5,000 unit Q8 SC Last admi nistered on 07/22/18at 15:23; Admin Dose 5,000 UNIT; Start 07/22/18 at 06:00 Diagnostic Test (Pha) (Accu-Chek) 1 ea 02 XX ; Start 07/22/18 at 02:00 Miscellaneous Information 1 ea NOTE XX ; Start 07/22/18 at 02:00 Glucose (Glutose) 15 gm Q15M PRN PO DECREASED GLUCOSE; Start 07/22/18 at 02:00 Glucose (Glutose) 22.5 gm Q15M PRN PO DECREASED GLUCOSE; Start 07/22/18 at 02:00 Dextrose (D50w Syringe) 25 ml Q15M PRN IV DECREASED GLUCOSE; Start 07/22/18 at 02:00 Dextrose (D50w Syringe) 50 ml Q15M PRN IV DECREASED GLUCOSE; Start 07/22/18 at 02:00 Glucagon (Glucagen) 1 mg Q15M PRN IM DECREASED GLUCOSE; Start 07/22/18 at 02:00 Glucose (Glutose) 15 gm Q15M PRN BUCCAL DECREASED GLUCOSE; Start 07/22/18 at 02:00 Insulin Glargine (Lantus) 11 units DAILY@0800 SC Last administered on 07/22/18at 08:32; Admin Dose 11 UNITS; Start 07/22/18 at 08:00 Insulin Aspart (Novolog Insulin Pen) NOVOLOG *MODERATE* ALGORI... Q4 SC Last administered on 07/22/18at 09:40; Admin Dose 2 UNIT; Start 07/22/18 at 09:00 Amlodipine Besylate (Norvasc) 10 mg DAILY PO Last administered on 07/22/18at 09:54; Admin Dose 10 MG; Start 07/22/18 at 09:00 Hydralazine HCl (Apresoline) 10 mg Q4H PRN IV ELEVATED BLOOD PRESSURE; Start 07/22/18 at 07:30 Tamsulosin HCl (Flomax) 0.4 mg DAILY PO ; Start 07/22/18 at 14:00 Sodium Chloride 1,000 ml @ 75 mls/hr [id number] IV Last administered on 07/22/18at 15:18; Admin Dose 75 MLS/HR; Start 07/22/18 at 14:00 Allergies: Coded Allergies: No Known Drug Allergies (Verified Allergy, Unknown, 07/22/18) Social History Alcohol Use: none Smoking Status: Never smoker Drug Use: none Exam/Review of Systems Vital Signs Vitals Vital Signs Date Temp Pulse Resp B/P (MAP) Pulse Ox O2 O2 Flow FiO2 Time Delivery Rate 07/22/18 97.9 87 18 138/86 100 Room Air 14:13 (103) 87 07/22/18 2 06:58 Exam Exam General: no acute distress HEENT: NC/AT. pupils are equal. round. NECK: NO JVD. no stridor. CV: RRR. systolic murmur; no gallop or rubs. PULM: no wheezing or rhonchi. GI: SOFT, NT, ND, no rebound or guarding Extremity:+ B/L LE edema. no clubbing. neuro: awake and alert, OX3. Psych: calm and pleasant rectal: deferred : normal EKG was personally reviewed showed normal sinus rhythm normal ECG Echocardiogram was also personally reviewed which shows: Normal left ventricular systolic function. Normal left ventricular cavity size. Mild concentric left ventricular hypertrophy. Ejection fraction is visually estimated at 60 %. Tissue Doppler/Mitral Doppler indices are consistent with impaired relaxation (Stage I diastolic dysfunction). Mitral valve leaflets appear mildly thickened. Mild mitral annular calcification. Trace mitral regurgitation. Normal appearance of the aortic valve. No significant aortic stenosis or insufficiency. Normal appearance and function of the tricuspid valve with trace physiologic regurgitation. Normal right ventricular systolic pressure. Labs Result Diagram: 07/22/18 0520 07/22/18 0520 Results 24hrs Laboratory Tests Test 07/21/18 23:00 07/21/18 23:06 07/22/18 00:47 07/22/18 02:52 Urine Color STRAW Urine Clarity CLEAR Urine pH 7.0 Urine Specific 1.024 [place] Urine Ketones NEGATIVE Urine Nitrite NEGATIVE Urine Bilirubin NEGATIVE Urine Urobilinogen NEGATIVE Urine Leukocyte NEGATIVE Esterase Urine Microscopic 1 RBC Urine Microscopic 1 WBC Urine Hemoglobin 1+ H Urine Random Sodium 31 Urine Glucose 3+ H Urine Total Protein 3+ H White Blood Count 6.1 Red Blood Count 3.48 L Hemoglobin 10.3 L Hematocrit 30.8 L Mean Corpuscular 88.5 Volume Mean Corpuscular 29.6 Hemoglobin Mean Corpuscular 33.4 Hemoglobin Concent Red Cell 13.1 Distribution Width Platelet Count 326 Mean Platelet Volume 10.1 Immature 0.800 H Granulocytes % Neutrophils % 67.3 Lymphocytes % 23.5 Monocytes % 5.9 Eosinophils % 1.8 Basophils % 0.7 Nucleated Red Blood 0.0 Cells % Immature 0.050 H Granulocytes # Neutrophils # 4.1 Lymphocytes # 1.4 Monocytes # 0.4 Eosinophils # 0.1 Basophils # 0.0 Nucleated Red Blood 0.0 Cells # Sodium Level 127 L Potassium Level 4.3 Chloride Level 100 Carbon Dioxide Level 23 Anion Gap 4 L Blood Urea Nitrogen 26 H Creatinine 1.61 H Est Glomerular 33 L Filtrat Rate mL/min Glucose Level 649 *H Calcium Level 8.2 L Total Bilirubin 0.1 L Direct Bilirubin 0.00 Indirect Bilirubin 0.1 Aspartate Amino 19 Transf (AST/SGOT) Alanine 14 Aminotransferase (AL T/SGPT) Alkaline Phosphatase 160 H Troponin I < 0.012 B-Type Natriuretic 1360 H Peptide Total Protein 6.0 L Albumin 2.6 L Globulin 3.40 H Albumin/Globulin 0.76 Ratio Bedside Glucose > 595 *H 519 *H Test 07/22/18 04:49 07/22/18 04:58 07/22/18 05:20 07/22/18 06:50 Bedside Glucose 384 H 285 H Bedside Urine pH 7.0 (LAB) Bedside Urine 3+ H Protein (LAB) Bedside Urine 0.50% H Glucose (UA) Bedside Urine Negative Ketones (LAB) Bedside Urine Blood 2+ H Bedside Urine Negative Nitrite (LAB) Bedside Urine Negative Leukocyte Esterase (L White Blood Count 7.4 # Red Blood Count 3.49 L Hemoglobin 10.4 L Hematocrit 30.5 L Mean Corpuscular 87.4 Volume Mean Corpuscular 29.8 Hemoglobin Mean Corpuscular 34.1 Hemoglobin Concent Red Cell 12.9 Distribution Width Platelet Count 343 Mean Platelet Volume 9.8 Immature 0.800 H Granulocytes % Neutrophils % 67.6 Lymphocytes % 24.4 Monocytes % 5.0 Eosinophils % 1.3 Basophils % 0.9 Nucleated Red Blood 0.0 Cells % Immature 0.060 H Granulocytes # Neutrophils # 5.0 Lymphocytes # 1.8 Monocytes # 0.4 Eosinophils # 0.1 Basophils # 0.1 Nucleated Red Blood 0.0 Cells # Sodium Level 131 L Potassium Level 3.8 Chloride Level 100 Carbon Dioxide Level 25 Anion Gap 6 Blood Urea Nitrogen 27 H Creatinine 1.64 H Est Glomerular 33 L Filtrat Rate mL/min Glucose Level 378 #H Calcium Level 8.4 Magnesium Level 2.4 Total Bilirubin 0.2 Direct Bilirubin 0.00 Indirect Bilirubin 0.2 Aspartate Amino 18 Transf (AST/SGOT) Alanine 7 L Aminotransferase (AL T/SGPT) Alkaline Phosphatase 139 H Total Protein 5.9 L Albumin 2.7 L Globulin 3.20 Albumin/Globulin 0.84 Ratio Triglycerides Level 278 H Cholesterol Level 380 H LDL Cholesterol, 259 Calculated HDL Cholesterol 65 Cholesterol/HDL 5.8 Ratio Thyroid Stimulating 8.670 H Hormone (TSH) Test 07/22/18 08:29 07/22/18 09:32 07/22/18 13:35 07/22/18 14:11 Bedside Glucose 221 H 173 119 Troponin I < 0.012 Medications Medications Current Medications IV Flush (NS 3 ml) 3 ml PER PROTOCOL IV ; Start 07/22/18 at 02:00 Acetaminophen (Tylenol Tab) 650 mg Q6H PRN PO .PAIN 1-3 OR TEMP; Start 07/22/18 at 02:00 Morphine Sulfate (morphine) 2 mg Q4H PRN IV .PAIN 7-10; Start 07/22/18 at 02:00 Docusate Sodium (Colace) 100 mg Q12H PRN PO .CONSTIPATION; Start 07/22/18 at 02:00 Bisacodyl (Dulcolax) 5 mg DAILY PRN PO .CONSTIPATION; Start 07/22/18 at 02:00 Heparin Sodium (Porcine) (Heparin (5000 Units/1ml)) 5,000 unit Q8 SC Last administered on 07/22/18at 15:23; Admin Dose 5,000 UNIT; Start 07/22/18 at 06:00 Diagnostic Test (Pha) (Accu-Chek) 1 ea 02 XX ; Start 07/22/18 at 02:00 Miscellaneous Information 1 ea NOTE XX ; Start 07/22/18 at 02:00 Glucose (Glutose) 15 gm Q15M PRN PO DECREASED GLUCOSE; Start 07/22/18 at 02:00 Glucose (Glutose) 22.5 gm Q15M PRN PO DECREASED GLUCOSE; Start 07/22/18 at 02:00 Dextrose (D50w Syringe) 25 ml Q15M PRN IV DECREASED GLUCOSE; Start 07/22/18 at 02:00 Dextrose (D50w Syringe) 50 ml Q15M PRN IV DECREASED GLUCOSE; Start 07/22/18 at 02:00 Glucagon (Glucagen) 1 mg Q15M PRN IM DECREASED GLUCOSE; Start 07/22/18 at 02:00 Glucose (Glutose) 15 gm Q15M PRN BUCCAL DECREASED GLUCOSE; Start 07/22/18 at 02:00 Insulin Glargine (Lantus) 11 units DAILY@0800 SC Last administered on 07/22/18at 08:32; Admin Dose 11 UNITS; Start 07/22/18 at 08:00 Insulin Aspart (Novolog Insulin Pen) NOVOLOG *MODERATE* ALGORI... Q4 SC Last administered on 07/22/18at 09:40; Admin Dose 2 UNIT; Start 07/22/18 at 09:00 Amlodipine Besylate (Norvasc) 10 mg DAILY PO Last administered on 07/22/18at 09:54; Admin Dose 10 MG; Start 07/22/18 at 09:00 Hydralazine HCl (Apresoline) 10 mg Q4H PRN IV ELEVATED BLOOD PRESSURE; Start 07/22/18 at 07:30 Tamsulosin HCl (Flomax) 0.4 mg DAILY PO ; Start 07/22/18 at 14:00 Sodium Chloride 1,000 ml @ 75 mls/hr [id number] IV Last administered on 07/22/18at 15:18; Admin Dose 75 MLS/HR; Start 07/22/18 at 14:00 LORENA PETERS MD Jul 22, 2018 16:03
[2018-07-22 20:45] VITALS: BP 101/56; PULSE 78; RESP 17
[2018-07-23] MEDS: ACCU-CHEK XX SCH (02:04)
[2018-07-23 02:23] VITALS: BP 146/80; PULSE 89; RESP 17
[2018-07-23] MEDS: SOD CHLORIDE 0.45% 1,000 ML IV SCH (04:30)
[2018-07-23] MEDS: HEPARIN 5,000 UNIT/1 ML VIAL SC SCH ×3 (05:06→20:45)
[2018-07-23 07:25] VITALS: BP 138/68; PULSE 92; RESP 18
[2018-07-23] MEDS: AMLODIPINE 10 MG TAB PO SCH (08:50)
[2018-07-23] MEDS: TAMSULOSIN (SR) 0.4 MG CAP PO SCH (08:51)
[2018-07-23] MEDS: INSULIN GLARGINE [LANTus] (100 UNITS/ML) SYG SC SCH ×2 (08:54→22:22)
[2018-07-23] MEDS: INSULIN ASPART [NOVOLOG] 3 ML PEN SC SCH ×4 (08:55→20:44)
--- NOTE | 2018-07-23 10:14 | PN ---
DATE: 07/23/2018 SUBJECTIVE: The patient is stable, no events overnight. No fevers, chills, nausea, or vomiting. OBJECTIVE: VITAL SIGNS: Blood pressure is 138/68, respirations 18, pulse 92, temperature 98.2. HEENT: Head is normocephalic. NECK: Supple. HEART: Regular rate. LUNGS: Show diminished breath sounds at the base. ABDOMEN: Soft, nontender to palpation without rebound or guarding. EXTREMITIES: Negative for clubbing, cyanosis. Positive edema. DERMATOLOGIC: No rashes. MUSCULOSKELETAL: No joint effusion. NEUROLOGIC: No change in exam. MEDICATIONS: The patient's medications have been reviewed. LABORATORY DATA: From 07/23/2018 was reviewed. Urinalysis is pending. IMAGING STUDIES: Renal ultrasound was reviewed. The patient's 2D echo was reviewed, showed preserved ejection fraction. ASSESSMENT AND PLAN: 1. Nonoliguric acute kidney injury with unknown baseline creatinine, possible chronic kidney disease. Etiology of acute kidney injury is likely secondary to hemodynamics. The patient's urinalysis was reviewed and bland, no active sediment. Plan at this point is to continue current medical management and adjust diuretic therapy as needed. Continue workup for possible nephrotic syndrome and monitor closely. 2. Volume overload. Etiology may be secondary to possible nephrotic syndrome. The patient's 2D echo was reviewed, showed preserved ejection fraction. Plan is to follow up urinalysis. We will quantify patient's proteinuria. We will monitor closely. Continue gentle diuretic therapy. 3. Hyponatremia secondary to hyperglycemia, acute kidney injury, improving 4. Right ureteral stone. Continue volume expansion, gentle fluids as patient is overloaded on exam, continue diuretics, strain urine. Monitor closely 4. Anemia. Continue to monitor hemoglobin and hematocrit levels. 5. Mineral bone disorder, monitor calcium and phosphorus levels. 6. Hypertension. Continue current blood pressure regimen. Defer SRAVAN inhibitor or ARB at this time. 7. Chest pain, possible musculoskeletal. The patient's troponins have been negative. A 2D echo was reviewed. 8. Diabetes. Continue current insulin regimen. Dictated By: ESPERANZA VELASQUEZ DO NR/NTS Conf#: [id number] DID#: [id number] CC: BABAK DE LOS SANTOS MD; CARLA DANIELLE MD;*EndCC* DONALDD
[2018-07-23] MEDS ORDERED: FUROSEMIDE 20 MG INJ IV SCH (11:00)
--- NOTE | 2018-07-23 13:43 | PN ---
Date/Time of Note Date/Time of Note DATE: 07/23/18 TIME: 13:40 Assessment/Plan VTE Prophylaxis Risk score (from Nsg)>0 risk: 1 SCD applied (from Nsg): Yes Pharmacological prophylaxis: heparin Lines/Catheters IV Catheter Type (from Nrsg): Peripheral IV Assessment/Plan Assessment/Plan 1. Right ureteral calculus, right back pain is lower and gis consultant, continue flomax and IVF, follow up with US tomorrow 2. Peripheral edema with proteinuria and hypoalbuminemia, r/o nephrotic syndrome, on lasix, follow up with nephrology 3. Renal failure,a cute versus chronic, follow up with BMP 4. HTN,, controlled 5. DM, insulins, increase insulin, DM education, will needs pre-meal 6. Hyponatremia, due to hyperglycemia, follow up with Na 7. Normocytic anemia, likely CKD related 8. DVT prophylaxis: heparin Result Diagram: 07/23/18 0436 07/23/18 0436 Results 24hrs Laboratory Tests Test 07/22/18 14:11 07/22/18 18:06 07/22/18 19:21 07/22/18 20:52 Troponin I < 0.012 < 0.012 Bedside Glucose 91 234 H Test 07/23/18 02:03 07/23/18 04:36 07/23/18 08:46 07/23/18 13:05 Bedside Glucose 140 150 344 H White Blood Count 6.1 Red Blood Count 3.46 L Hemoglobin 10.2 L Hematocrit 30.8 L Mean Corpuscular 89.0 Volume Mean Corpuscular 29.5 Hemoglobin Mean Corpuscular 33.1 Hemoglobin Concent Red Cell 13.3 Distribution Width Platelet Count 307 Mean Platelet Volume 11.2 H Immature 0.300 Granulocytes % Neutrophils % 56.1 Lymphocytes % 36.2 Monocytes % 5.1 Eosinophils % 1.3 Basophils % 1.0 Nucleated Red Blood 0.0 Cells % Immature 0.020 Granulocytes # Neutrophils # 3.4 Lymphocytes # 2.2 Monocytes # 0.3 Eosinophils # 0.1 Basophils # 0.1 Nucleated Red Blood 0.0 Cells # Sodium Level 134 L Potassium Level 4.4 Chloride Level 105 Carbon Dioxide Level 24 Anion Gap 5 Blood Urea Nitrogen 29 H Creatinine 2.07 H Est Glomerular 25 L Filtrat Rate mL/min Glucose Level 147 # Hemoglobin A1c Calcium Level 8.7 Magnesium Level 2.4 Total Bilirubin 0.2 Direct Bilirubin 0.00 Indirect Bilirubin 0.2 Aspartate Amino 26 Transf (AST/SGOT) Alanine 8 L Aminotransferase (AL T/SGPT) Alkaline Phosphatase 128 H Total Protein 6.0 L Albumin 2.6 L Globulin 3.40 H Albumin/Globulin 0.76 Ratio Subjective 24 Hr Interval Summary Free Text/Dictation back pain is less and lower on right Exam/Review of Systems Exam Vitals Vital Signs Date Temp Pulse Resp B/P (MAP) Pulse Ox O2 O2 Flow FiO2 Time Delivery Rate 07/23/18 98.2 92 18 138/68 98 07:25 (91) 07/22/18 Room Air 14:13 07/22/18 2 06:58 Intake and Output 07/22/18 07/22/18 07/23/18 1515:00 23:00 07:00 IntakeIntake Total 150 ml 1065 ml BalanceBalance 150 ml 1065 ml Constitutional: alert, oriented, well developed Psych: no complaints, nl mood/affect Head: normocephalic, atraumatic Eyes: nl conjunctiva, EOMI, nl lids ENMT: nl external ears & nose, nl lips & teeth, nl nasal mucosa & septum Neck: supple, non-tender Respiratory: clear to auscultation, normal air movement; No congested cough, No crackles/rales, No diminished breath sounds, No intercostal retraction, No labored breathing, No respirations, No tactile fremitus, No wheezing, No other Cardiovascular: regular rate and rhythm, nl pulses; No bruits, No diastolic murmur, No edema, No gallop, No irregular rhythm, No jugular venous distention (JVD), No murmurs/extra sounds, No rub, No systolic murmur, No S3, No S4, No other Gastrointestinal: soft, nl liver, spleen, non-tender Musculoskeletal: nl extremities to inspection Extremities: normal pulses, edema; No calf tenderness, No cyanosis, No clubbing, No pitting pedal edema, No palpable cord, No tenderness, No other 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, nl mental status, nl speech, nl strength Results Results 24hrs Laboratory Tests Test 07/22/18 14:11 07/22/18 18:06 07/22/18 19:21 07/22/18 20:52 Troponin I < 0.012 < 0.012 Bedside Glucose 91 234 H Test 07/23/18 02:03 07/23/18 04:36 07/23/18 08:46 07/23/18 13:05 Bedside Glucose 140 150 344 H White Blood Count 6.1 Red Blood Count 3.46 L Hemoglobin 10.2 L Hematocrit 30.8 L Mean Corpuscular 89.0 Volume Mean Corpuscular 29.5 Hemoglobin Mean Corpuscular 33.1 Hemoglobin Concent Red Cell 13.3 Distribution Width Platelet Count 307 Mean Platelet Volume 11.2 H Immature 0.300 Granulocytes % Neutrophils % 56.1 Lymphocytes % 36.2 Monocytes % 5.1 Eosinophils % 1.3 Basophils % 1.0 Nucleated Red Blood 0.0 Cells % Immature 0.020 Granulocytes # Neutrophils # 3.4 Lymphocytes # 2.2 Monocytes # 0.3 Eosinophils # 0.1 Basophils # 0.1 Nucleated Red Blood 0.0 Cells # Sodium Level 134 L Potassium Level 4.4 Chloride Level 105 Carbon Dioxide Level 24 Anion Gap 5 Blood Urea Nitrogen 29 H Creatinine 2.07 H Est Glomerular 25 L Filtrat Rate mL/min Glucose Level 147 # Hemoglobin A1c Calcium Level 8.7 Magnesium Level 2.4 Total Bilirubin 0.2 Direct Bilirubin 0.00 Indirect Bilirubin 0.2 Aspartate Amino 26 Transf (AST/SGOT) Alanine 8 L Aminotransferase (AL T/SGPT) Alkaline Phosphatase 128 H Total Protein 6.0 L Albumin 2.6 L Globulin 3.40 H Albumin/Globulin 0.76 Ratio Medications Medication Current Medications IV Flush (NS 3 ml) 3 ml PER PROTOCOL IV ; Start 07/22/18 at 02:00 Acetaminophen (Tylenol Tab) 650 mg Q6H PRN PO .PAIN 1-3 OR TEMP Last administered on 07/23/18at 09:28; Admin Dose 650 MG; Start 07/22/18 at 02:00 Morphine Sulfate (morphine) 2 mg Q4H PRN IV .PAIN 7-10; Start 07/22/18 at 02:00 Docusate Sodium (Colace) 100 mg Q12H PRN PO .CONSTIPATION; Start 07/22/18 at 02:00 Bisacodyl (Dulcolax) 5 mg DAILY PRN PO .CONSTIPATION; Start 07/22/18 at 02:00 Heparin Sodium (Porcine) (Heparin (5000 Units/1ml)) 5,000 unit Q8 SC Last administered on 07/23/18at 05:06; Admin Dose 5,000 UNIT; Start 07/22/18 at 06:00 Diagnostic Test (Pha) (Accu-Chek) 1 ea 02 XX Last administered on 07/23/18at 02:04; Admin Dose 1 EA; Start 07/22/18 at 02:00 Miscellaneous Information 1 ea NOTE XX ; Start 07/22/18 at 02:00 Glucose (Glutose) 15 gm Q15M PRN PO DECREASED GLUCOSE; Start 07/22/18 at 02:00 Glucose (Glutose) 22.5 gm Q15M PRN PO DECREASED GLUCOSE; Start 07/22/18 at 02 :00 Dextrose (D50w Syringe) 25 ml Q15M PRN IV DECREASED GLUCOSE; Start 07/22/18 at 02:00 Dextrose (D50w Syringe) 50 ml Q15M PRN IV DECREASED GLUCOSE; Start 07/22/18 at 02:00 Glucagon (Glucagen) 1 mg Q15M PRN IM DECREASED GLUCOSE; Start 07/22/18 at 02:00 Glucose (Glutose) 15 gm Q15M PRN BUCCAL DECREASED GLUCOSE; Start 07/22/18 at 02:00 Hydralazine HCl (Apresoline) 10 mg Q4H PRN IV ELEVATED BLOOD PRESSURE; Start 07/22/18 at 07:30 Tamsulosin HCl (Flomax) 0.4 mg DAILY PO Last administered on 07/23/18at 08:51; Admin Dose 0.4 MG; Start 07/22/18 at 14:00 Insulin Aspart (Novolog Insulin Pen) NOVOLOG *MODERATE* ALGORITHM WITH MEALS BEDTIME SC Last administered on 07/23/18at 08:55; Admin Dose 2 UNIT; Start 07/23/18 at 07:50 Amlodipine Besylate (Norvasc) 5 mg DAILY PO ; Start 07/24/18 at 09:00 Furosemide (Lasix) 20 mg DAILY IV ; Start 07/23/18 at 11:00 Albumin Human 100 ml @ 100 mls/hr Q8H IV ; Start 07/23/18 at 11:00; Stop 07/24/18 at 03:59 Insulin Glargine (Lantus) 13 units DAILY@0800 SC ; Start 07/24/18 at 08:00 BABAK DE LOS SANTOS MD Jul 23, 2018 13:43
[2018-07-23 13:57] VITALS: BP 116/65; PULSE 99; RESP 19
--- NOTE | 2018-07-23 14:08 | CONS ---
Assessment/Plan Assessment/Plan Hospital Course (Demo Recall) 57-year-old female with a past medical history of diabetes mellitus, hypertensi on, hyperlipidemia presented to the emergency department with symptoms of bilateral lower extremity edema and dyspnea on exertion. Patient reports that due to the fact that she does not have a primary care physician she has not been able to be compliant with her medications. She was previously on Lasix for lower extremity swelling. She has noticed that the swelling is getting worse of her lower extremities. Her legs feel heavy. She also reports that she has tightness down her bilateral legs to her toes. She states that she feels short of breath when she walks. She has been experiencing on and off chest pain as well on occasion . She also complained of right flank pain and lower back pain and because of that she had a CT scan of the abdomen and pelvis and that showed: 1. Mild perinephric stranding about the right kidney and proximal right ureter with a 3 mm partially obstructing calculus in the mid right ureter. 2. Scattered colonic diverticulosis without evidence of acute diverticulitis. 3. Normal appearing appendix visualized. 4. Scattered fecal residue suggesting mild constipation. 5. Fat-containing umbilical hernia. 6. Mild stranding in the subcutaneous fat of the abdomen pelvis suggesting mild anasarca. Therefore a urological consultation was requested. The patient denies any prior history of kidney stones She denies any lower urinary tract symptoms. She does have nausea but no vomiting. She denies any hematuria. There is no family history of kidney stones. Impression: 3 mm right upper ureteral stone and she should be able to pass it on her own. Plan: Tamsulosin, strain the urine, pain medications. Consultation Date/Type/Reason Admit Date/Time July 22, 2018 Date of Consultation: Jul 23, 2018 Type of Consult Urology Reason for Consultation Right upper ureteral stone Requesting Provider: BABAK DE LOS SANTOS MD Date/Time of Note DATE: 07/23/18 TIME: 14:08 Hx of Present Illness 57-year-old female with a past medical history of diabetes mellitus, hypertension, hyperlipidemia presented to the emergency department with symptoms of bilateral lower extremity edema and dyspnea on exertion. Patient reports that due to the fact that she does not have a primary care physician she has not been able to be compliant with her medications. She was previously on Lasix for lower extremity swelling. She has noticed that the swelling is getting worse of her lower extremities. Her legs feel heavy. She also reports that she has tightness down her bilateral legs to her toes. She states that she feels short of breath when she walks. She has been experiencing on and off chest pain as well on occasion . She also complained of right flank pain and lower back pain and because of that she had a CT scan of the abdomen and pelvis and that showed: 1. Mild perinephric stranding about the right kidney and proximal right ureter with a 3 mm partially obstructing calculus in the mid right ureter. 2. Scattered colonic diverticulosis without evidence of acute diverticulitis. 3. Normal appearing appendix visualized. 4. Scattered fecal residue suggesting mild constipation. 5. Fat-containing umbilical hernia. 6. Mild stranding in the subcutaneous fat of the abdomen pelvis suggesting mild anasarca. Therefore a urological consultation was requested. The patient denies any prior history of kidney stones She denies any lower urinary tract symptoms. She does have nausea but no vomiting. She denies any hematuria. There is no family history of kidney stones. Constitutional: no complaints Eyes: no complaints, other (History of bilateral cataract surgery) ENT: no complaints Respiratory: shortness of breath (On admission) Cardiovascular: chest pain (Before on admission) Gastrointestinal: nausea Genitourinary: flank pain (Right side); No dysuria, No hematuria Musculoskeletal: no complaints Skin: no complaints Neurologic: no complaints Endocrine: no complaints Lymphatic: no complaints Psychological: no complaints Past Medical History Medical History: diabetes, high cholesterol, hypertension, other (Acute kidney injury) Home Meds Reported Medications Aspirin* (Aspirin* EC) 81 Mg Tablet.dr, 81 MG PO DAILY, TAB 07/22/18 Medications Current Medications IV Flush (NS 3 ml) 3 ml PER PROTOCOL IV ; Start 07/22/18 at 02:00 Acetaminophen (Tylenol Tab) 650 mg Q6H PRN PO .PAIN 1-3 OR TEMP Last administered on 07/23/18at 09:28; Admin Dose 650 MG; Start 07/22/18 at 02:00 Morphine Sulfate (morphine) 2 mg Q4H PRN IV .PAIN 7-10; Start 07/22/18 at 02:00 Docusate Sodium (Colace) 100 mg Q12H PRN PO .CONSTIPATION; Start 07/22/18 at 02:00 Bisacodyl (Dulcolax) 5 mg DAILY PRN PO .CONSTIPATION; Start 07/22/18 at 02:00 Heparin Sodium (Porcine) (Heparin (5000 Units/1ml)) 5,000 unit Q8 SC Last administered on 07/23/18at 05:06; Admin Dose 5,000 UNIT; Start 07/22/18 at 06:00 Diagnostic Test (Pha) (Accu-Chek) 1 ea 02 XX Last administered on 07/23/18at 02:04; Admin Dose 1 EA; Start 07/22/18 at 02:00 Miscellaneous Information 1 ea NOTE XX ; Start 07/22/18 at 02:00 Glucose (Glutose) 15 gm Q15M PRN PO DECREASED GLUCOSE; Start 07/22/18 at 02:00 Glucose (Glutose) 22.5 gm Q15M PRN PO DECREASED GLUCOSE; Start 07/22/18 at 02:00 Dextrose (D50w Syringe) 25 ml Q15M PRN IV DECREASED GLUCOSE; Start 07/22/18 at 02:00 Dextrose (D50w Syringe) 50 ml Q15M PRN IV DECREASED GLUCOSE; Start 07/22/18 at 02:00 Glucagon (Glucagen) 1 mg Q15M PRN IM DECREASED GLUCOSE; Start 07/22/18 at 02:00 Glucose (Glutose) 15 gm Q15M PRN BUCCAL DECREASED GLUCOSE; Start 07/22/18 at 02:00 Hydralazine HCl (Apresoline) 10 mg Q4H PRN IV ELEVATED BLOOD PRESSURE; Start 07/22/18 at 07:30 Tamsulosin HCl (Flomax) 0.4 mg DAILY PO Last administered on 07/23/18at 08:51; Admin Dose 0.4 MG; Start 07/22/18 at 14:00 Insulin Aspart (Novolog Insulin Pen) NOVOLOG *MODERATE* ALGORITHM WITH MEALS BEDTIME SC Last administered on 07/23/18at 08:55; Admin Dose 2 UNIT; Start 07/23/18 at 07:50 Amlodipine Besylate (Norvasc) 5 mg DAILY PO ; Start 07/24/18 at 09:00 Albumin Human 100 ml @ 100 mls/hr Q8H IV ; Start 07/23/18 at 11:00; Stop 07/24/18 at 03:59 Insulin Glargine (Lantus) 13 units DAILY@0800 SC ; Start 07/24/18 at 08:00 Allergies: Coded Allergies: No Known Drug Allergies (Verified Allergy, Unknown, 07/22/18) Past Surgical History Past Surgical Hx: other (Bilateral cataract surgery, neck surgery for benign growth right side when young girl.) Social History Alcohol Use: none Smoking Status: Never smoker Drug Use: none Other Social History She is a 6, para 4, 2 miscarriages and 4 normal deliveries Exam/Review of Systems Exam Vitals Vital Signs Date Temp Pulse Resp B/P (MAP) Pulse Ox O2 O2 Flow FiO2 Time Delivery Rate 07/23/18 98.2 99 19 116/65 98 13:57 (82) 07/22/18 Room Air 14:13 07/22/18 2 06:58 Intake and Output 07/22/18 07/22/18 07/23/18 1515:00 23:00 07:00 IntakeIntake Total 150 ml 1065 ml BalanceBalance 150 ml 1065 ml Constitutional: alert, oriented Psych: no complaints Head: normocephalic Eyes: nl conjunctiva ENMT: nl external ears & nose Neck: supple Respiratory: normal air movement; No wheezing Cardiovascular: No jugular venous distention (JVD) Gastrointestinal: soft; No mass Genitourinary - Female: CVA tenderness (Mild right side) Musculoskeletal: nl extremities to inspection Extremities: No calf tenderness Results Result Diagram: 07/23/18 0436 07/23/18 0436 Results 24hrs Laboratory Tests Test 07/22/18 14:11 07/22/18 18:06 07/22/18 19:21 07/22/18 20:52 Troponin I < 0.012 < 0.012 Bedside Glucose 91 234 H Test 07/23/18 02:03 07/23/18 04:36 07/23/18 08:46 07/23/18 13:00 Bedside Glucose 140 150 White Blood Count 6.1 Red Blood Count 3.46 L Hemoglobin 10.2 L Hematocrit 30.8 L Mean Corpuscular 89.0 Volume Mean Corpuscular 29.5 Hemoglobin Mean Corpuscular 33.1 Hemoglobin Concent Red Cell 13.3 Distribution Width Platelet Count 307 Mean Platelet Volume 11.2 H Immature 0.300 Granulocytes % Neutrophils % 56.1 Lymphocytes % 36.2 Monocytes % 5.1 Eosinophils % 1.3 Basophils % 1.0 Nucleated Red Blood 0.0 Cells % Immature 0.020 Granulocytes # Neutrophils # 3.4 Lymphocytes # 2.2 Monocytes # 0.3 Eosinophils # 0.1 Basophils # 0.1 Nucleated Red Blood 0.0 Cells # Sodium Level 134 L Potassium Level 4.4 Chloride Level 105 Carbon Dioxide Level 24 Anion Gap 5 Blood Urea Nitrogen 29 H Creatinine 2.07 H Est Glomerular 25 L Filtrat Rate mL/min Glucose Level 147 # Hemoglobin A1c Calcium Level 8.7 Magnesium Level 2.4 Total Bilirubin 0.2 Direct Bilirubin 0.00 Indirect Bilirubin 0.2 Aspartate Amino 26 Transf (AST/SGOT) Alanine 8 L Aminotransferase (AL T/SGPT) Alkaline Phosphatase 128 H Total Protein 6.0 L Albumin 2.6 L Globulin 3.40 H Albumin/Globulin 0.76 Ratio Urine Color STRAW Urine Clarity CLEAR Urine pH 6.0 Urine Specific 1.008 [place] Urine Ketones NEGATIVE Urine Nitrite NEGATIVE Urine Bilirubin NEGATIVE Urine Urobilinogen NEGATIVE Urine Leukocyte NEGATIVE Esterase Urine Microscopic 1 RBC Urine Microscopic 2 WBC Urine Hemoglobin 1+ H Urine Random 42.33 Creatinine Urine Random Sodium 25 L Urine Glucose 3+ H Urine Total Protein Pending Test 07/23/18 13:05 Bedside Glucose [address] scan of the abdomen and pelvis: 1. Mild perinephric stranding about the right kidney and proximal right ureter with a 3 mm partially obstructing calculus in the mid right ureter. 2. Scattered colonic diverticulosis without evidence of acute diverticulitis. 3. Normal appearing appendix visualized. 4. Scattered fecal residue suggesting mild constipation. 5. Fat-containing umbilical hernia. 6. Mild stranding in the subcutaneous fat of the abdomen pelvis suggesting mild anasarca. Medications Medication Current Medications IV Flush (NS 3 ml) 3 ml PER PROTOCOL IV ; Start 07/22/18 at 02:00 Acetaminophen (Tylenol Tab) 650 mg Q6H PRN PO .PAIN 1-3 OR TEMP Last administered on 07/23/18at 09:28; Admin Dose 650 MG; Start 07/22/18 at 02:00 Morphine Sulfate (morphine) 2 mg Q4H PRN IV .PAIN 7-10; Start 07/22/18 at 02:00 Docusate Sodium (Colace) 100 mg Q12H PRN PO .CONSTIPATION; Start 07/22/18 at 02:00 Bisacodyl (Dulcolax) 5 mg DAILY PRN PO .CONSTIPATION; Start 07/22/18 at 02:00 Heparin Sodium (Porcine) (Heparin (5000 Units/1ml)) 5,000 unit Q8 SC Last administered on 07/23/18at 05:06; Admin Dose 5,000 UNIT; Start 07/22/18 at 06:00 Diagnostic Test (Pha) (Accu-Chek) 1 ea 02 XX Last administered on 07/23/18at 02:04; Admin Dose 1 EA; Start 07/22/18 at 02:00 Miscellaneous Information 1 ea NOTE XX ; Start 07/22/18 at 02:00 Glucose (Glutose) 15 gm Q15M PRN PO DECREASED GLUCOSE; Start 07/22/18 at 02:00 Glucose (Glutose) 22.5 gm Q15M PRN PO DECREASED GLUCOSE; Start 07/22/18 at 02:00 Dextrose (D50w Syringe) 25 ml Q15M PRN IV DECREASED GLUCOSE; Start 07/22/18 at 02:00 Dextrose (D50w Syringe) 50 ml Q15M PRN IV DECREASED GLUCOSE; Start 07/22/18 at 02:00 Glucagon (Glucagen) 1 mg Q15M PRN IM DECREASED GLUCOSE; Start 07/22/18 at 02:00 Glucose (Glutose) 15 gm Q15M PRN BUCCAL DECREASED GLUCOSE; Start 07/22/18 at 02:00 Hydralazine HCl (Apresoline) 10 mg Q4H PRN IV ELEVATED BLOOD PRESSURE; Start 07/22/18 at 07:30 Tamsulosin HCl (Flomax) 0.4 mg DAILY PO Last administered on 07/23/18at 08:51; Admin Dose 0.4 MG; Start 07/22/18 at 14:00 Insulin Aspart (Novolog Insulin Pen) NOVOLOG *MODERATE* ALGORITHM WITH MEALS BEDTIME SC Last administered on 07/23/18at 08:55; Admin Dose 2 UNIT; Start 07/23/18 at 07:50 Amlodipine Besylate (Norvasc) 5 mg DAILY PO ; Start 07/24/18 at 09:00 Albumin Human 100 ml @ 100 mls/hr Q8H IV ; Start 07/23/18 at 11:00; Stop 07/24/18 at 03:59 Insulin Glargine (Lantus) 13 units DAILY@0800 SC ; Start 07/24/18 at 08:00 RUSS JAY MD Jul 23, 2018 14:08
[2018-07-23] MEDS: ALBUMIN HUMAN 25% 100 ML IV SCH ×2 (14:41→20:42)
--- NOTE | 2018-07-23 15:50 | CONS ---
Consult Date/Type/Reason Admit Date/Time Jul 22, 2018 at 01:23 Initial Consult Date 07/22/18 Requesting Provider: CARLA DANIELLE Date/Time of Note DATE: 07/23/18 TIME: 15:49 Subjective Cardiology follow-up progress Subjective: Discussed with the staff. Consider family at the bedside. Patient with no PND orthopnea. Continues to have lower extremity edema No chest pain or pressure Objective: General: no acute distress HEENT: NC/AT. pupils are equal. round. NECK: NO JVD. no stridor. CV: RRR. systolic murmur; no gallop or rubs. PULM: no wheezing or rhonchi. GI: SOFT, NT, ND, no rebound or guarding Extremity:+ B/L LE edema. no clubbing. neuro: awake and alert, OX3. Psych: calm and pleasant rectal: deferred : normal EKG was personally reviewed showed normal sinus rhythm normal ECG Echocardiogram was also personally reviewed which shows: Normal left ventricular systolic function. Normal left ventricular cavity size. Mild concentric left ventricular hypertrophy. Ejection fraction is visually estimated at 60 %. Tissue Doppler/Mitral Doppler indices are consistent with impaired relaxation (Stage I diastolic dysfunction). Mitral valve leaflets appear mildly thickened. Mild mitral annular calcification. Trace mitral regurgitation. Normal appearance of the aortic valve. No significant aortic stenosis or insufficiency. Normal appearance and function of the tricuspid valve with trace physiologic regurgitation. Normal right ventricular systolic pressure. Objective Vitals Vital Signs Date Temp Pulse Resp B/P (MAP) Pulse Ox O2 O2 Flow FiO2 Time Delivery Rate 07/23/18 98.2 99 19 116/65 98 13:57 (82) 07/22/18 Room Air 14:13 07/22/18 2 06:58 Intake and Output 07/22/18 07/22/18 07/23/18 1515:00 23:00 07:00 IntakeIntake Total 150 ml 1065 ml BalanceBalance 150 ml 1065 ml Results/Medications Result Diagram: 07/23/18 0436 07/23/18 0436 Results 24 hrs Laboratory Tests Test 07/22/18 18:06 07/22/18 19:21 07/22/18 20:52 07/23/18 02:03 Bedside Glucose 91 234 H 140 Troponin I < 0.012 Test 07/23/18 04:36 07/23/18 08:46 07/23/18 13:00 07/23/18 13:05 White Blood Count 6.1 Red Blood Count 3.46 L Hemoglobin 10.2 L Hematocrit 30.8 L Mean Corpuscular 89.0 Volume Mean Corpuscular 29.5 Hemoglobin Mean Corpuscular 33.1 Hemoglobin Concent Red Cell 13.3 Distribution Width Platelet Count 307 Mean Platelet Volume 11.2 H Immature 0.300 Granulocytes % Neutrophils % 56.1 Lymphocytes % 36.2 Monocytes % 5.1 Eosinophils % 1.3 Basophils % 1.0 Nucleated Red Blood 0.0 Cells % Immature 0.020 Granulocytes # Neutrophils # 3.4 Lymphocytes # 2.2 Monocytes # 0.3 Eosinophils # 0.1 Basophils # 0.1 Nucleated Red Blood 0.0 Cells # Sodium Level 134 L Potassium Level 4.4 Chloride Level 105 Carbon Dioxide Level 24 Anion Gap 5 Blood Urea Nitrogen 29 H Creatinine 2.07 H Est Glomerular 25 L Filtrat Rate mL/min Glucose Level 147 # Hemoglobin A1c Calcium Level 8.7 Magnesium Level 2.4 Total Bilirubin 0.2 Direct Bilirubin 0.00 Indirect Bilirubin 0.2 Aspartate Amino 26 Transf (AST/SGOT) Alanine 8 L Aminotransferase (AL T/SGPT) Alkaline Phosphatase 128 H Total Protein 6.0 L Albumin 2.6 L Globulin 3.40 H Albumin/Globulin 0.76 Ratio Bedside Glucose 150 344 H Urine Color STRAW Urine Clarity CLEAR Urine pH 6.0 Urine Specific 1.008 [place] Urine Ketones NEGATIVE Urine Nitrite NEGATIVE Urine Bilirubin NEGATIVE Urine Urobilinogen NEGATIVE Urine Leukocyte NEGATIVE Esterase Urine Microscopic 1 RBC Urine Microscopic 2 WBC Urine Hemoglobin 1+ H Urine Random 42.33 Creatinine Urine Random Sodium 25 L Urine Glucose 3+ H Urine Total Protein Home Meds Reported Medications Aspirin* (Aspirin* EC) 81 Mg Tablet.dr, 81 MG PO DAILY, TAB 07/22/18 Medications Current Medications IV Flush (NS 3 ml) 3 ml PER PROTOCOL IV ; Start 07/22/18 at 02:00 Acetaminophen (Tylenol Tab) 650 mg Q6H PRN PO .PAIN 1-3 OR TEMP Last administered on 07/23/18at 09:28; Admin Dose 650 MG; Start 07/22/18 at 02:00 Morphine Sulfate (morphine) 2 mg Q4H PRN IV .PAIN 7-10; Start 07/22/18 at 02:00 Docusate Sodium (Colace) 100 mg Q12H PRN PO .CONSTIPATION; Start 07/22/18 at 02:00 Bisacodyl (Dulcolax) 5 mg DAILY PRN PO .CONSTIPATION; Start 07/22/18 at 02:00 Heparin Sodium (Porcine) (Heparin (5000 Units/1ml)) 5,000 unit Q8 SC Last administered on 07/23/18at 13:32; Admin Dose 5,000 UNIT; Start 07/22/18 at 06:00 Diagnostic Test (Pha) (Accu-Chek) 1 ea 02 XX Last administered on 07/23/18at 02:04; Admin Dose 1 EA; Start 07/22/18 at 02:00 Miscellaneous Information 1 ea NOTE XX ; Start 07/22/18 at 02:00 Glucose (Glutose) 15 gm Q15M PRN PO DECREASED GLUCOSE; Start 07/22/18 at 02:00 Glucose (Glutose) 22.5 gm Q15M PRN PO DECREASED GLUCOSE; Start 07/22/18 at 02:00 Dextrose (D50w Syringe) 25 ml Q15M PRN IV DECREASED GLUCOSE; Start 07/22/18 at 02:00 Dextrose (D50w Syringe) 50 ml Q15M PRN IV DECREASED GLUCOSE; Start 07/22/18 at 02:00 Glucagon (Glucagen) 1 mg Q15M PRN IM DECREASED GLUCOSE; Start 07/22/18 at 02:00 Glucose (Glutose) 15 gm Q15M PRN BUCCAL DECREASED GLUCOSE; Start 07/22/18 at 02:00 Hydralazine HCl (Apresoline) 10 mg Q4H PRN IV ELEVATED BLOOD PRESSURE; Start 07/22/18 at 07:30 Tamsulosin HCl (Flomax) 0.4 mg DAILY PO Last administered on 07/23/18at 08:51; Admin Dose 0.4 MG; Start 07/22/18 at 14:00 Insulin Aspart (Novolog Insulin Pen) NOVOLOG *MODERATE* ALGORITHM WITH MEALS BEDTIME SC Last administered on 07/23/18at 13:27; Admin Dose 10 UNIT; Start 07/23/18 at 07:50 Amlodipine Besylate (Norvasc) 5 mg DAILY PO ; Start 07/24/18 at 09:00 Albumin Human 100 ml @ 100 mls/hr Q8H IV Last administered on 07/23/18at 14:41; Admin Dose 100 MLS/HR; Start 07/23/18 at 11:00; Stop 07/24/18 at 03:59 Insulin Glargine (Lantus) 13 units DAILY@0800 SC ; Start 07/24/18 at 08:00 Assessment/Plan Hospital Course (Demo Recall) Lower extremity edema: Doubt CHF. Most likely secondary to her renal dysfunction and proteinuria Hypertension : Poorly controlled diabetes secondary to noncompliance Severe hyperglycemia Proteinuria: ? nephrotic syndrome Renal insufficiency: Unclear acute versus chronic Recommendations: Diuretic to be managed as per renal recommendation given her renal insufficiency Continue with blood pressure control Diabetic management as per internal medicine Importance of compliant with discussed with the patient and daughter Not on SRAVAN inhibitor due to her renal insufficiency. To be started once okay from renal standpoint Thank you for his referral. I will continue to follow along with you LORENA PETERS MD [facility] LORENA PETERS MD Jul 23, 2018 15:50
[2018-07-23 20:44] VITALS: BP 119/57; PULSE 91; RESP 18
[2018-07-24] MEDS: ACCU-CHEK XX SCH (02:32)
[2018-07-24 02:48] VITALS: BP 155/76; PULSE 76; RESP 16
[2018-07-24] MEDS: ALBUMIN HUMAN 25% 100 ML IV SCH (04:28)
[2018-07-24] MEDS: HEPARIN 5,000 UNIT/1 ML VIAL SC SCH ×2 (05:29→13:32)
[2018-07-24] MEDS: INSULIN ASPART [NOVOLOG] 3 ML PEN SC SCH ×6 (07:50→18:15)
--- NOTE | 2018-07-24 07:53 | CONS ---
Consult Date/Type/Reason Admit Date/Time Jul 22, 2018 at 01:23 Initial Consult Date 07/22/18 Type of Consultation: cv Requesting Provider: BABAK DE LOS SANTOS MD Date/Time of Note DATE: 07/24/18 TIME: 07:52 Subjective Cardiology follow-up progress Subjective: Discussed with the staff. Patient with no PND orthopnea. He states that she is feeling better No chest pain or pressure Objective: General: no acute distress HEENT: NC/AT. pupils are equal. round. NECK: NO JVD. no stridor. CV: RRR. systolic murmur; no gallop or rubs. PULM: no wheezing or rhonchi. GI: SOFT, NT, ND, no rebound or guarding Extremity:+ B/L LE edema. no clubbing. neuro: awake and alert, OX3. Psych: calm and pleasant rectal: deferred : normal EKG was personally reviewed showed normal sinus rhythm normal ECG Echocardiogram was also personally reviewed which shows: Normal left ventricular systolic function. Normal left ventricular cavity size. Mild concentric left ventricular hypertrophy. Ejection fraction is visually estimated at 60 %. Tissue Doppler/Mitral Doppler indices are consistent with impaired relaxation (Stage I diastolic dysfunction). Mitral valve leaflets appear mildly thickened. Mild mitral annular calcification. Trace mitral regurgitation. Normal appearance of the aortic valve. No significant aortic stenosis or insufficiency. Normal appearance and function of the tricuspid valve with trace physiologic regurgitation. Normal right ventricular systolic pressure. Objective Vitals Vital Signs Date Temp Pulse Resp B/P (MAP) Pulse Ox O2 O2 Flow FiO2 Time Delivery Rate 07/24/18 98.6 76 16 155/76 98 02:48 (102) 07/22/18 Room Air 14:13 07/22/18 2 06:58 Intake and Output 07/23/18 07/23/18 07/24/18 1515:00 23:00 07:00 IntakeIntake Total 375 ml 620 ml 340 ml OutputOutput Total 1700 ml BalanceBalance 375 ml 620 ml -1360 ml Results/Medications Result Diagram: 07/24/18 0439 07/24/18 0439 Results 24 hrs Laboratory Tests Test 07/23/18 08:46 07/23/18 13:00 07/23/18 13:05 07/23/18 18:10 Bedside Glucose 150 344 H 350 H Urine Color STRAW Urine Clarity CLEAR Urine pH 6.0 Urine Specific 1.008 [place] Urine Ketones NEGATIVE Urine Nitrite NEGATIVE Urine Bilirubin NEGATIVE Urine Urobilinogen NEGATIVE Urine Leukocyte NEGATIVE Esterase Urine Microscopic 1 RBC Urine Microscopic 2 WBC Urine Hemoglobin 1+ H Urine Random 42.33 Creatinine Urine Random Sodium 25 L Urine Glucose 3+ H Urine Total Protein Test 07/23/18 20:40 07/23/18 22:20 07/24/18 02:28 07/24/18 04:39 Bedside Glucose 219 191 176 White Blood Count 6.1 Red Blood Count 3.14 L Hemoglobin 9.3 L Hematocrit 27.7 L Mean Corpuscular 88.2 Volume Mean Corpuscular 29.6 Hemoglobin Mean Corpuscular 33.6 Hemoglobin Concent Red Cell 13.3 Distribution Width Platelet Count 334 Mean Platelet Volume 10.7 H Immature 0.500 H Granulocytes % Neutrophils % 49.8 Lymphocytes % 40.7 Monocytes % 6.4 Eosinophils % 1.6 Basophils % 1.0 Nucleated Red Blood 0.0 Cells % Immature 0.030 Granulocytes # Neutrophils # 3.0 Lymphocytes # 2.5 Monocytes # 0.4 Eosinophils # 0.1 Basophils # 0.1 Nucleated Red Blood 0.0 Cells # Sodium Level 134 L Potassium Level 4.0 Chloride Level 101 Carbon Dioxide Level 26 Anion Gap 7 Blood Urea Nitrogen 36 H Creatinine 1.95 H Est Glomerular 27 L Filtrat Rate mL/min Glucose Level 129 Calcium Level 8.8 Total Bilirubin 0.1 L Direct Bilirubin 0.00 Indirect Bilirubin 0.1 Aspartate Amino 24 Transf (AST/SGOT) Alanine 16 Aminotransferase (AL T/SGPT) Alkaline Phosphatase 97 Total Protein 6.1 Albumin 3.1 L Globulin 3.00 Albumin/Globulin 1.03 Ratio Home Meds Reported Medications Aspirin* (Aspirin* EC) 81 Mg Tablet.dr, 81 MG PO DAILY, TAB 07/22/18 Medications Current Medications IV Flush (NS 3 ml) 3 ml PER PROTOCOL IV ; Start 07/22/18 at 02:00 Acetaminophen (Tylenol Tab) 650 mg Q6H PRN PO .PAIN 1-3 OR TEMP Last administered on 07/23/18at 09:28; Admin Dose 650 MG; Start 07/22/18 at 02:00 Morphine Sulfate (morphine) 2 mg Q4H PRN IV .PAIN 7-10; Start 07/22/18 at 02:00 Docusate Sodium (Colace) 100 mg Q12H PRN PO .CONSTIPATION; Start 07/22/18 at 02:00 Bisacodyl (Dulcolax) 5 mg DAILY PRN PO .CONSTIPATION; Start 07/22/18 at 02:00 Heparin Sodium (Porcine) (Heparin (5000 Units/1ml)) 5,000 unit Q8 SC Last administered on 07/24/18at 05:29; Admin Dose 5,000 UNIT; Start 07/22/18 at 06:00 Diagnostic Test (Pha) (Accu-Chek) 1 ea 02 XX Last administered on 07/24/18at 02:32; Admin Dose 1 EA; Start 07/22/18 at 02:00 Miscellaneous Information 1 ea NOTE XX ; Start 07/22/18 at 02:00 Glucose (Glutose) 15 gm Q15M PRN PO DECREASED GLUCOSE; Start 07/22/18 at 02:00 Glucose (Glutose) 22.5 gm Q15M PRN PO DECREASED GLUCOSE; Start 07/22/18 at 02:00 Dextrose (D50w Syringe) 25 ml Q15M PRN IV DECREASED GLUCOSE; Start 07/22/18 at 02:00 Dextrose (D50w Syringe) 50 ml Q15M PRN IV DECREASED GLUCOSE; Start 07/22/18 at 02:00 Glucagon (Glucagen) 1 mg Q15M PRN IM DECREASED GLUCOSE; Start 07/22/18 at 02:00 Glucose (Glutose) 15 gm Q15M PRN BUCCAL DECREASED GLUCOSE; Start 07/22/18 at 02:00 Hydralazine HCl (Apresoline) 10 mg Q4H PRN IV ELEVATED BLOOD PRESSURE; Start 07/22/18 at 07:30 Tamsulosin HCl (Flomax) 0.4 mg DAILY PO Last administered on 07/23/18at 08:51; Admin Dose 0.4 MG; Start 07/22/18 at 14:00 Insulin Aspart (Novolog Insulin Pen) NOVOLOG *MODERATE* ALGORITHM WITH MEALS BEDTIME SC Last administered on 07/23/18at 20:44; Admin Dose 1 UNIT; Start 07/23/18 at 07:50 Amlodipine Besylate (Norvasc) 5 mg DAILY PO ; Start 07/24/18 at 09:00 Insulin Glargine (Lantus) 10 units BID SC Last administered on 07/23/18at 22:22; Admin Dose 10 UNITS; Start 07/23/18 at 21:00 Insulin Aspart (Novolog Insulin Pen) 7 unit WITH MEALS SC ; Start 07/24/18 at 07:50 Assessment/Plan Hospital Course (Demo Recall) Lower extremity edema: Doubt CHF. Most likely secondary to her renal d ysfunction and proteinuria Hypertension : Poorly controlled diabetes secondary to noncompliance Severe hyperglycemia Proteinuria: ? nephrotic syndrome Renal insufficiency: Unclear acute versus chronic Recommendations: Diuretic to be managed as per renal recommendation given her renal insufficiency Continue with blood pressure control Diabetic management as per internal medicine Importance of compliant with discussed with the patient and daughter Not on SRAVAN inhibitor due to her renal insufficiency. To be started once okay from renal standpoint Thank you for his referral. I will continue to follow along with you LORENA PETERS MD [facility] LORENA PETERS MD Jul 24, 2018 07:53
[2018-07-24 08:00] VITALS: BP 115/59; PULSE 95; RESP 18
[2018-07-24] MEDS ORDERED: INSULIN GLARGINE [LANTus] (100 UNITS/ML) SYG SC SCH (08:00)
[2018-07-24] MEDS ORDERED: AMLODIPINE 10 MG TAB PO SCH (09:00)
[2018-07-24] MEDS: TAMSULOSIN (SR) 0.4 MG CAP PO SCH (09:06)
[2018-07-24] MEDS: INSULIN GLARGINE [LANTus] (100 UNITS/ML) SYG SC SCH (09:09)
--- NOTE | 2018-07-24 10:30 | PN ---
DATE: 07/24/2018 SUBJECTIVE: The patient is currently stable, continues to have lower extremity edema. No other acut e events noted. No hemoptysis, hematemesis or hematochezia. OBJECTIVE: VITAL SIGNS: Blood pressure is 115/59, pulse 94, respirations 18, temperature 98.2. HEENT: Head is normocephalic. NECK: Supple. HEART: Regular rate. LUNGS: Show diminished breath sounds at the base. ABDOMEN: Soft, nontender to palpation without rebound or guarding. EXTREMITIES: Negative for clubbing, cyanosis. Positive edema. DERMATOLOGIC: No rashes. MUSCULOSKELETAL: No joint effusion. NEUROLOGIC: No change in exam. MEDICATIONS: Reviewed. LABORATORY DATA: Reviewed. Urinalysis has been reviewed, shows evidence of albuminuria greater than 12 grams per gram of creatinine. ASSESSMENT AND PLAN: 1. Nonoliguric acute kidney injury on top of chronic kidney disease with unknown baseline creatinine . Etiology of acute kidney injury is secondary to hemodynamics. The patient's renal function has be en fluctuating. At this point, continue current treatment plans, supportive care, renally dose all m edicines. Monitor closely on diuretic therapy. 2. Nephrotic syndrome. Etiology is likely secondary to diabetic nephropathy. The patient has signi ficant nephrotic range proteinuria greater than 13 grams per gram of creatinine and is hypoalbuminemi c, volume overloaded. Plan is to check serologies. We would otherwise continue current diuretic reg imen. If serological workup is negative we will discuss with patient about the possibility of renal biopsy. 3. Hypernatremia, improved. Continue to monitor. 4. Right ureteral stone. The patient is clinically improving. Continue current medical management. Follow up with neurology. 5. Anemia. Continue to monitor hemoglobin and hematocrit levels. 6. Mineral bone disorder, monitor calcium and phosphorus levels. 7. Hypertension. Continue current blood pressure regimen. Defer SRAVAN inhibitor at this time. We wi ll reintroduce SRAVAN inhibitor once renal function stable. 8. Chest pain, etiology is musculoskeletal. 9. Diabetes, poorly controlled. Continue current medical management. Dictated By: ESPERANZA VELASQUEZ DO NR/NTS Conf#: [id number] DID#: [id number] CC: BABAK DE LOS SANTOS MD; RUSS JAY MD; CARLA DANIELLE MD;*EndCC*
[2018-07-24 14:42] VITALS: BP 129/62; PULSE 93; RESP 18
[2018-07-24] MEDS ORDERED: TAMS-14 PO (15:41)
[2018-07-24] MEDS ORDERED: Insulin Glargine SC (15:41)
[2018-07-24] MEDS ORDERED: AMLO-147 PO (15:41)
--- NOTE | 2018-07-24 16:09 | DS ---
Date/Time of Note Date/Time of Note DATE: 07/24/18 TIME: 15:55 Discharge Summary Admission/Discharge Info Admit Date/Time Jul 22, 2018 at 01:23 Discharge Date/Time Discharge Diagnosis 1. Right ureteral calculus, likely passed, negative renal US, 5 more days of flomax 2. Peripheral edema with proteinuria and hypoalbuminemia, r/o nephrotic syndrome, follow up with nephrology 3. Renal failure, acute on chronic, follwo up with nephrology 4. HTN,, controlled 5. DM, on lantus, follow up with PCP to adjust dosage 6. Hyponatremia, improved 7. Peripheral neuropathy, diabetic, follow up with PCP Patient Condition: Stable Hospital Course 57 years old female with DM and HTN that she is not taking medications regularly at home came in with swelling on both legs, numbness on both legs(for years), and right sided back pain. Patient is found of having right ureteral 3 mm stone that is the etiology of her back pain. She is treated with flomax and IVF, back pain resolved, renal US today no ureteral stone or hydronephrosis, indicating she passed the sone. I will keep her on flomax for 5 more day. Patient has significant proteinuria with serum albumin 2.7 on admission, the peripheral edema is considered hypoalbuminemia from nephrotic syndrome related. The nephrotic syndrome is DM related. She is start on lantus the controlled her blood glucose well. We will not put her on pre-meal insulin due to compliance issue and she states she usually only take one meal a day. I will have her follow up with her PCP to adjust DM treatment. She has both lower extremity numbness for years, below the knees. SHe is instructed to avoid injury and check her legs/feet frequently to avoid injury. Home Meds Active Scripts [Insulin Glargine] 100 UNITS/ML SOLN No Conflict Check, 18 UNITS SC DAILY for 30 Days Prov:BABAK DE LOS SANTOS MD 07/24/18 Amlodipine Besylate* (Amlodipine Besylate*) 10 Mg Tablet, 5 MG PO DAILY for 30 Days, TAB Prov:BABAK DE LOS SANTOS MD 07/24/18 Tamsulosin Hcl* (Flomax*) 0.4 Mg Cap.er.24h, 0.4 MG PO DAILY for 5 Days, CAP Prov:BABAK DE LOS SANTOS MD 07/24/18 Reported Medications Aspirin* (Aspirin* EC) 81 Mg Tablet., 81 MG PO DAILY, TAB 07/22/18 Follow-up Plan PCP in one week Nephrology in one week Primary Care Provider Care Physician No Primary Pending Labs Laboratory Tests Test 07/23/18 18:10 07/23/18 20:40 07/23/18 22:20 07/24/18 02:28 Bedside 350 219 191 176 Glucose mg/dL (70-220) mg/dL (70-220) mg/dL (70-220) mg/dL (70-220) Test 07/24/18 04:39 07/24/18 08:19 07/24/18 09:49 07/24/18 10:04 White Blood 6.1 Count 10^3/ul (4.8-10 .8) Red Blood 3.14 Count 10^6/ul (4.20-5 .40) Hemoglobin 9.3 g/dl (12.0-16.0 ) Hematocrit 27.7 % (37.0-47.0) Mean 88.2 Corpuscular fl (82.0-101.0) Volume Mean 29.6 Corpuscular pg (29.0-33.0) Hemoglobin Mean 33.6 Corpuscular g/dl (32.0-37.0 Hemoglobin Conc ) ent Red Cell 13.3 Distribution % (11.5-14.5) Width Platelet Count 334 10^3/UL (140-41 5) Mean Platelet 10.7 Volume fl (7.4-10.4) Immature 0.500 Granulocytes % % (0.001-0.429) Neutrophils % 49.8 % (39.0-77.0) Lymphocytes % 40.7 % (15.0-51.0) Monocytes % 6.4 % (0.0-11.0) Eosinophils % 1.6 % (0.0-7.0) Basophils % 1.0 % (0.0-2.0) Nucleated Red 0.0 Blood Cells % /100WBC (0.0-0. 0) Immature 0.030 Granulocytes # 10^3/ul (0.0-0. 031) Neutrophils # 3.0 10^3/ul (1.6-7. 5) Lymphocytes # 2.5 10^3/ul (0.8-2. 9) Monocytes # 0.4 10^3/ul (0.3-0. 9) Eosinophils # 0.1 10^3/ul (0.0-0. 5) Basophils # 0.1 10^3/ul (0.0-0. 1) Nucleated Red 0.0 Blood Cells # 10^3/ul (0.0-0. 0) Sodium Level 134 mmol/L (135-144 ) Potassium 4.0 Level mmol/L (3.5-5.1 ) Chloride Level 101 mmol/L (97-110) Carbon Dioxide 26 Level mmol/L (21-31) Anion Gap 7 (5-13) Blood Urea 36 mg/dl (7-20) Nitrogen Creatinine 1.95 mg/dl (0.44-1.0 0) Est Glomerular 27 mL/min (>60) Filtrat Rate mL/min Glucose Level 129 mg/dl (70-220) Calcium Level 8.8 mg/dl (8.4-10.2 ) Total 0.1 Bilirubin mg/dl (0.2-1.3) Direct 0.00 Bilirubin mg/dl (0.00-0.2 0) Indirect 0.1 Bilirubin mg/dl (0-1.1) Aspartate Amino 24 IU/L (15-46) Transf (AST/SGO T) Alanine 16 IU/L (13-69) Aminotransferas e (ALT/SGPT) Alkaline 97 Phosphatase IU/L (42-121) Total Protein 6.1 g/dl (6.1-8.1) Albumin 3.1 g/dl (3.3-4.9) Globulin 3.00 g/dl (1.3-3.2) Albumin/Globuli 1.03 n Ratio Bedside 87 164 Glucose mg/dL (70-220) mg/dL (70-220) Rheumatoid NEGATIVE (NEGA Factor Screen TIVE) Complement C3 84 mg/dl (88-165) Complement C4 29 mg/dl (14-44) Hepatitis B NEGATIVE (NEGA Surface TIVE) Antigen Hepatitis B NEGATIVE (NEGA Core TIVE) Total Antibody Hepatitis C NEGATIVE (NEGA Antibody TIVE) Test 07/24/18 12:42 Bedside 97 Glucose mg/dL (70-220) BABAK DE LOS SANTOS MD Jul 24, 2018 16:09
--- NOTE | 2018-07-24 19:26 | CONS ---
Consult Date/Type/Reason Admit Date/Time Jul 22, 2018 at 01:23 Initial Consult Date 07/23/18 Type of Consultation: Urology Reason for Consultation Right mid ureteral stone Requesting Provider: BABAK DE LOS SANTOS MD Date/Time of Note DATE: 07/24/18 TIME: 19:25 Subjective Patient is comfortable has no pain and no nausea or vomiting Objective Vitals Vital Signs Date Temp Pulse Resp B/P (MAP) Pulse Ox O2 O2 Flow FiO2 Time Delivery Rate 07/24/18 98.4 93 18 129/62 98 14:42 (84) 07/22/18 Room Air 14:13 07/22/18 2 06:58 Intake and Output 07/23/18 07/23/18 07/24/18 1515:00 23:00 07:00 IntakeIntake Total 375 ml 620 ml 340 ml OutputOutput Total 1700 ml BalanceBalance 375 ml 620 ml -1360 ml Exam Abdomen is soft and there is no flank tenderness. Results/Medications Result Diagram: 07/24/18 0439 07/24/18 0439 Results 24 hrs Laboratory Tests Test 07/23/18 20:40 07/23/18 22:20 07/24/18 02:28 07/24/18 04:39 Bedside Glucose 219 191 176 White Blood Count 6.1 Red Blood Count 3.14 L Hemoglobin 9.3 L Hematocrit 27.7 L Mean Corpuscular 88.2 Volume Mean Corpuscular 29.6 Hemoglobin Mean Corpuscular 33.6 Hemoglobin Concent Red Cell 13.3 Distribution Width Platelet Count 334 Mean Platelet Volume 10.7 H Immature 0.500 H Granulocytes % Neutrophils % 49.8 Lymphocytes % 40.7 Monocytes % 6.4 Eosinophils % 1.6 Basophils % 1.0 Nucleated Red Blood 0.0 Cells % Immature 0.030 Granulocytes # Neutrophils # 3.0 Lymphocytes # 2.5 Monocytes # 0.4 Eosinophils # 0.1 Basophils # 0.1 Nucleated Red Blood 0.0 Cells # Sodium Level 134 L Potassium Level 4.0 Chloride Level 101 Carbon Dioxide Level 26 Anion Gap 7 Blood Urea Nitrogen 36 H Creatinine 1.95 H Est Glomerular 27 L Filtrat Rate mL/min Glucose Level 129 Calcium Level 8.8 Total Bilirubin 0.1 L Direct Bilirubin 0.00 Indirect Bilirubin 0.1 Aspartate Amino 24 Transf (AST/SGOT) Alanine 16 Aminotransferase (AL T/SGPT) Alkaline Phosphatase 97 Total Protein 6.1 Albumin 3.1 L Globulin 3.00 Albumin/Globulin 1.03 Ratio Test 07/24/18 08:19 07/24/18 09:49 07/24/18 10:04 07/24/18 12:42 Bedside Glucose 87 164 97 Rheumatoid Factor NEGATIVE Screen Complement C3 84 L Complement C4 29 Hepatitis B Surface NEGATIVE Antigen Hepatitis B Core NEGATIVE Total Antibody Hepatitis C Antibody NEGATIVE Test 07/24/18 17:47 Bedside Glucose 140 Home Meds Active Scripts [Insulin Glargine] 100 UNITS/ML SOLN No Conflict Check, 18 UNITS SC DAILY for 30 Days Prov:BABAK DE LOS SANTOS MD 07/24/18 Amlodipine Besylate* (Amlodipine Besylate*) 10 Mg Tablet, 5 MG PO DAILY for 30 Days, TAB Prov:BABAK DE LOS SANTOS MD 07/24/18 Tamsulosin Hcl* (Flomax*) 0.4 Mg Cap.er.24h, 0.4 MG PO DAILY for 5 Days, CAP Prov:BABAK DE LOS SANTOS MD 07/24/18 Reported Medications Aspirin* (Aspirin* EC) 81 Mg Tablet.dr, 81 MG PO DAILY, TAB 07/22/18 Medications Current Medications IV Flush (NS 3 ml) 3 ml PER PROTOCOL IV ; Start 07/22/18 at 02:00 Acetaminophen (Tylenol Tab) 650 mg Q6H PRN PO .PAIN 1-3 OR TEMP Last administered on 07/23/18at 09:28; Admin Dose 650 MG; Start 07/22/18 at 02:00 Morphine Sulfate (morphine) 2 mg Q4H PRN IV .PAIN 7-10; Start 07/22/18 at 02:00 Docusate Sodium (Colace) 100 mg Q12H PRN PO .CONSTIPATION; Start 07/22/18 at 02:00 Bisacodyl (Dulcolax) 5 mg DAILY PRN PO .CONSTIPATION; Start 07/22/18 at 02:00 Heparin Sodium (Porcine) (Heparin (5000 Units/1ml)) 5,000 unit Q8 SC Last administered on 07/24/18at 13:32; Admin Dose 5,000 UNIT; Start 07/22/18 at 06:00 Diagnostic Test (Pha) (Accu-Chek) 1 ea 02 XX Last administered on 07/24/18at 02:32; Admin Dose 1 EA; Start 07/22/18 at 02:00 Miscellaneous Information 1 ea NOTE XX ; Start 07/22/18 at 02:00 Glucose (Glutose) 15 gm Q15M PRN PO DECREASED GLUCOSE; Start 07/22/18 at 02:00 Glucose (Glutose) 22.5 gm Q15M PRN PO DECREASED GLUCOSE; Start 07/22/18 at 02:00 Dextrose (D50w Syringe) 25 ml Q15M PRN IV DECREASED GLUCOSE; Start 07/22/18 at 02:00 Dextrose (D50w Syringe) 50 ml Q15M PRN IV DECREASED GLUCOSE; Start 07/22/18 at 02:00 Glucagon (Glucagen) 1 mg Q15M PRN IM DECREASED GLUCOSE; Start 07/22/18 at 02:00 Glucose (Glutose) 15 gm Q15M PRN BUCCAL DECREASED GLUCOSE; Start 07/22/18 at 02:00 Hydralazine HCl (Apresoline) 10 mg Q4H PRN IV ELEVATED BLOOD PRESSURE; Start 07/22/18 at 07:30 Tamsulosin HCl (Flomax) 0.4 mg DAILY PO Last administered on 07/24/18at 09:06; Admin Dose 0.4 MG; Start 07/22/18 at 14:00 Insulin Aspart (Novolog Insulin Pen) NOVOLOG *MODERATE* ALGORITHM WITH MEALS BEDTIME SC Last administered on 07/23/18at 20:44; Admin Dose 1 UNIT; Start 07/23/18 at 07:50 Amlodipine Besylate (Norvasc) 5 mg DAILY PO Last administered on 07/24/18 09:07; Admin Dose 5 MG; Start 07/24/18 at 09:00 Insulin Glargine (Lantus) 10 units BID SC Last administered on 07/24/18 09:09; Admin Dose 10 UNITS; Start 07/23/18 at 21:00 Insulin Aspart (Novolog Insulin Pen) 7 unit WITH MEALS SC Last administered on 07/24/18at 18:15; Admin Dose 7 UNIT; Start 07/24/18 at 07:50 Assessment/Plan Hospital Course (Demo Recall) 57-year-old female with a past medical history of diabetes mellitus, hypertension, hyperlipidemia presented to the emergency department with symptoms of bilateral lower extremity edema and dyspnea on exertion. Patient reports that due to the fact that she does not have a primary care physician she has not been able to be compliant with her medications. She was previously on Lasix for lower extremity swelling. She has noticed that the swelling is getting worse of her lower extremities. Her legs feel heavy. She also reports that she has tightness down her bilateral legs to her toes. She states that she feels short of breath when she walks. She has been experiencing on and off chest pain as well on occasion . She also complained of right flank pain and lower back pain and because of that she had a CT scan of the abdomen and pelvis and that showed: 1. Mild perinephric stranding about the right kidney and proximal right ureter with a 3 mm partially obstructing calculus in the mid right ureter. 2. Scattered colonic diverticulosis without evidence of acute diverticulitis. 3. Normal appearing appendix visualized. 4. Scattered fecal residue suggesting mild constipation. 5. Fat-containing umbilical hernia. 6. Mild stranding in the subcutaneous fat of the abdomen pelvis suggesting mild anasarca. Therefore a urological consultation was requested. The patient is doing well, she denies any flank pain and there is no nausea or vomiting. She is voiding well. Recommendation patient may be discharged as the stone is small and she should be able to pass it. RUSS JAY MD Jul 24, 2018 19:26
== END 2018-07-24 20:15 | disposition home or self-care (01) | DRG 699 ==
LOC: E/R 20:25 → MS1 07-22 01:23 → EDBEDREQSVC 07-22 13:05
PROVIDERS: ADMIT Family Medicine; ATTEND Internal Medicine
DX: E11.21 Type 2 diabetes mellitus with diabetic nephropathy (principal); E87.1 Hypo-osmolality and hyponatremia; N20.1 Calculus of ureter; E11.65 Type 2 diabetes mellitus with hyperglycemia; I16.0 Hypertensive urgency; N17.9 Acute kidney failure, unspecified; N18.9 Chronic kidney disease, unspecified; E78.5 Hyperlipidemia, unspecified; E88.09 Other disorders of plasma-protein metabolism, not elsewhere classified; E11.22 Type 2 diabetes mellitus with diabetic chronic kidney disease; D63.1 Anemia in chronic kidney disease; E83.9 Disorder of mineral metabolism, unspecified; K57.30 Diverticulosis of large intestine without perforation or abscess without bleeding; K42.9 Umbilical hernia without obstruction or gangrene; I12.9 Hypertensive chronic kidney disease with stage 1 through stage 4 chronic kidney disease, or unspecified chronic kidney disease; R07.89 Other chest pain; E11.40 Type 2 diabetes mellitus with diabetic neuropathy, unspecified
CPT/HCPCS: 36415; 71045; 74018; 74176; 76775; 80053; 80061; 81001; 81003; 82043; 82306; 82570; 82595; 82962; 83036; 83735; 83880; 84155; 84156; 84165; 84166; 84300; 84443; 84484; 85025; 86021; 86038; 86160; 86226; 86320; 86325; 86430; 86704; 86709; 86803; 87340; 93005; 93306; 93970; 96372; 96374; J1644; J1815; J1940; P9047